=== PATIENT | female | born 1995 | race Caucasian/White ===

== ENCOUNTER 2017-07-04 21:55 | Emergency (ER) | payer OTHER ==
[~2017-07-04] VITALS: Ht 157.5 cm; Wt 63.5 kg
[~2017-07-04 21:55] MED LIST: ACET325 PO; ALBU90OI INH; AZIT250 PO; BIRTH CONTROL; FAMO20 PO; HYDACE5 PO; IBUP400 PO; IBUP600 PO; Norco 5-325 Ta1 EACH PO; PROM25 PO; Verotin-Gr Cap1 EACH PO
[2017-07-04] MEDS ORDERED: METHYLPREDNISOLONE ACETATE (22:11)
[2017-07-04 22:53] LABS: BASOPHILS ABSOLUTE AUTO 0.04 K/mm3 (0.00-0.23); BASOPHILS PERCENT AUTO 0 % (0-2); EOSINOPHILS ABSOLUTE AUTO 0.11 K/mm3 (0.00-0.68); EOSINOPHILS PERCENT AUTO 1 % (0-6); Hematocrit 43.7 % (33.0-51.0); Hemoglobin 15.1 g/dL (11.5-16.0); IMMATURE GRAN ABSOLUTE AUTO 0.02 K/mm3 (0.00-0.10); IMMATURE GRAN PERCENT AUTO 0 % (0-1); LYMPHOCYTES ABSOLUTE AUTO 3.54 K/mm3 (0.84-5.20); LYMPHOCYTES PERCENT AUTO 32 % (21-46); MONOCYTES ABSOLUTE AUTO 0.63 K/mm3 (0.16-1.47); MONOCYTES PERCENT AUTO 6 % (4-13); Mean Corpuscular HGB 31.5 pg (26.0-34.0); Mean Corpuscular HGB Conc 34.6 g/dL (31.5-36.5); Mean Corpuscular Volume 91 fL (80-100); NEUTROPHILS ABSOLUTE AUTO 6.89 K/mm3 (1.96-9.15); NEUTROPHILS PERCENT AUTO 61 % (41-73); Platelet Count 389 K/mm3 (150-400); RDW Coefficient Variation 11.8 % (11.7-14.2); RDW Standard Deviation 39.7 fL (35.1-46.3); Red Blood Cell Count 4.79 M/mm3 (3.80-5.20); White Blood Cell Count 11.23 K/mm3 (4.00-11.30)
[2017-07-04 23:11] LABS: Alanine Aminotransfer (ALT/SGP 22 U/L (12-78); Albumin, Blood 4.5 g/dL (3.4-5.0); Albumin/Globulin Ratio 1.2 (0.8-1.8); Alk Phos 87 U/L (50-136); Anion Gap 14 mmol/L (6-16); Aspartate Aminotrans (AST/SGOT 18 U/L (12-37); Bilirubin, Total 1.1 mg/dL (0.1-1.0); Blood Urea Nitrogen 12 mg/dL (8-24); Bun/Creatinine Ratio 17.8 (12.0-20.0); CO2, Blood 20 mmol/L (21-32); Calcium, Blood 9.4 mg/dL (8.5-10.1); Chloride, Blood 107 mmol/L (98-108); Creatinine, Blood 0.68 mg/dL (0.40-1.00); Globulin, Blood 3.8 g/dL (2.2-4.0); Glomerular Filtration Rate >60 (60-); Glucose, Blood 85 mg/dL (70-99); Potassium, Blood 3.1 mmol/L (3.5-5.5); Sodium, Blood 141 mmol/L (136-145); Total Protein, Blood 8.3 g/dL (6.4-8.2); Troponin I <0.015 ng/mL (0.000-0.040)
== END 2017-07-05 00:06 | disposition home or self-care (01) ==
LOC: ER 21:55
PROVIDERS: Emergency Medicine
DX: F12.929 Cannabis use, unspecified with intoxication, unspecified (principal); F41.0 Panic disorder [episodic paroxysmal anxiety]; E87.6 Hypokalemia; F17.210 Nicotine dependence, cigarettes, uncomplicated; Z88.0 Allergy status to penicillin; Z88.5 Allergy status to narcotic agent; Z79.899 Other long term (current) drug therapy
CPT/HCPCS: 36415; 71046; 80053; 81000; 81025; 84484; 85025; 93005; 93010; 99283

== ENCOUNTER 2020-07-28 21:28 | Observation (INO) | payer BC ==
[~2020-07-28] VITALS: Ht 157.5 cm; Wt 68.1 kg
[~2020-07-28 21:28] MED LIST changes: +METHYLPREDNISOLONE ACETATE
--- NOTE | 2020-07-28 23:39 | NUR ---
IV PLACED BY [facility]
[2020-07-29] MEDS ORDERED: PRENATAL TABLE1 EAC2 PO (00:09)
[2020-07-29] MEDS ORDERED: CEPH500 PO (18:11)
[2020-07-29] MEDS ORDERED: Percocet 5-3251 EACH PO (18:11)
--- NOTE | 2020-07-29 18:25 | NUR ---
DISCHARGE SUMMARY DISCHARGE INSTRUCTIONS AND SCRIPTS GIVEN. WILL DC HOME AFTER ABX INFUSION.
--- NOTE | 2020-07-29 18:35 | NUR ---
D/C HOME WITH INSTRUCTIONS
== END 2020-07-29 18:55 | disposition home or self-care (01) ==
LOC: OBS 21:28 → BC 21:30 → OBS 21:38 → BC 21:40 → OBS 21:40 → BC 23:51
PROVIDERS: ADMIT Obstetrics & Gynecology
DX: O23.03 Infections of kidney in pregnancy, third trimester (principal); N13.6 Pyonephrosis; F17.200 Nicotine dependence, unspecified, uncomplicated; Z88.6 Allergy status to analgesic agent; Z88.0 Allergy status to penicillin; Z20.822 Contact with and (suspected) exposure to COVID-19; Z3A.00 Weeks of gestation of pregnancy not specified
CPT/HCPCS: 76770; 96361; 96374; A9270; G0378; J0696; J1170; J3105; J7120

== ENCOUNTER 2020-09-17 12:15 | Inpatient (IN) | payer BC ==
[~2020-09-17] VITALS: Ht 157.5 cm; Wt 73.6 kg
[~2020-09-17 12:15] MED LIST changes: +CEPH500 PO; +PRENATAL TABLE1 EAC2 PO; +Percocet 5-3251 EACH PO
[2020-09-17 13:38] LABS: BASOPHILS ABSOLUTE AUTO 0.06 K/mm3 (0.00-0.23); BASOPHILS PERCENT AUTO 1 % (0-2); EOSINOPHILS ABSOLUTE AUTO 0.09 K/mm3 (0.00-0.68); EOSINOPHILS PERCENT AUTO 1 % (0-6); Hematocrit 38.8 % (33.0-51.0); Hemoglobin 13.3 g/dL (11.5-16.0); IMMATURE GRAN ABSOLUTE AUTO 0.07 K/mm3 (0.00-0.10); IMMATURE GRAN PERCENT AUTO 1 % (0-1); LYMPHOCYTES ABSOLUTE AUTO 2.01 K/mm3 (0.84-5.20); LYMPHOCYTES PERCENT AUTO 16 % (21-46); MONOCYTES ABSOLUTE AUTO 0.92 K/mm3 (0.16-1.47); MONOCYTES PERCENT AUTO 7 % (4-13); Mean Corpuscular HGB 31.8 pg (26.0-34.0); Mean Corpuscular HGB Conc 34.3 g/dL (31.5-36.5); Mean Corpuscular Volume 93 fL (80-100); Mean Platelet Volume 9.9 fL (9.1-12.4); NEUTROPHILS PERCENT AUTO 75 % (41-73); Platelet Count 320 K/mm3 (150-400); RDW Coefficient Variation 12.2 % (11.7-14.2); RDW Standard Deviation 41.7 fL (35.1-46.3); Red Blood Cell Count 4.18 M/mm3 (3.80-5.20); White Blood Cell Count 12.75 K/mm3 (4.00-11.30)
[2020-09-17 13:39] LABS: Influenza A, PCR NEGATIVE (NEGATIVE); Influenza B, PCR NEGATIVE (NEGATIVE); Resp Syncytial Virus, PCR NEGATIVE (NEGATIVE); SARS-Cov-2 (COVID-19) PCR, MMC NEGATIVE (NEGATIVE)
[2020-09-18 05:57] LABS: Hematocrit 37.7 % (33.0-51.0); Hemoglobin 12.6 g/dL (11.5-16.0); Mean Corpuscular HGB 31.5 pg (26.0-34.0); Mean Corpuscular HGB Conc 33.4 g/dL (31.5-36.5); Mean Corpuscular Volume 94 fL (80-100); Mean Platelet Volume 9.5 fL (9.1-12.4); Platelet Count 337 K/mm3 (150-400); RDW Coefficient Variation 12.1 % (11.7-14.2); RDW Standard Deviation 42.1 fL (35.1-46.3); White Blood Cell Count 21.34 K/mm3 (4.00-11.30)
--- NOTE | 2020-09-18 15:55 | NUR ---
RN/LC ROUNDED TO HELP W/ . PT IS AN EXPERIENCED MOM, STATES IS GOING WELL. INSTRUCTED PT ON FREQUENCY OF FEEDS AND SUPPLY/DEMAND OF BREAST MILK. INSTRUCTED PT ON CORRECT POSITIONING, LATCHING, AND NIPPLE SHAPE AFTER FEEDS. FURTHER LC OFFERED IF PT DESIRES.
--- NOTE | 2020-09-18 21:01 | NUR ---
BANDS MATCH WITH BABY.
== END 2020-09-18 21:00 | disposition home or self-care (01) | DRG 807 ==
LOC: OBS 12:15 → BC 12:15 → OBS 13:14 → BC 13:15
PROVIDERS: Family Medicine; ADMIT Family Medicine
PROC: 10E0XZZ Delivery of Products of Conception, External Approach (ICD-10-PCS; principal; 2020-09-17)
PROC: 10907ZC Drainage of Amniotic Fluid, Therapeutic from Products of Conception, Via Natural or Artificial Opening (ICD-10-PCS; 2020-09-17)
DX: O80 Encounter for full-term uncomplicated delivery (principal); Z37.0 Single live birth; Z3A.39 39 weeks gestation of pregnancy; Z20.822 Contact with and (suspected) exposure to COVID-19
CPT/HCPCS: 0241U; 36415; 59025; 85025; 85027; 86850; 86900; 86901; 99214; A9270; J1720; J1885; J2405; J2590; J3010; J7120

== ENCOUNTER → 2021-03-04 | Outpatient (CLI) | payer BC | END | disposition home or self-care (01) | LOC: LAB 16:42 → LAB SHORT 16:42 | DX: R31.9 Hematuria, unspecified (principal) | CPT/HCPCS: 87077; 87086; 87186 ==

== ENCOUNTER 2021-03-19 04:27 | Emergency (ER) | payer BC, OTHER ==
[~2021-03-19] VITALS: Ht 157.5 cm; Wt 46.3 kg
== END 2021-03-19 06:37 | disposition home or self-care (01) ==
LOC: ER 04:27
DX: T69.9XXA Effect of reduced temperature, unspecified, initial encounter (principal); F10.129 Alcohol abuse with intoxication, unspecified; F17.210 Nicotine dependence, cigarettes, uncomplicated; Z88.0 Allergy status to penicillin; Z88.5 Allergy status to narcotic agent
CPT/HCPCS: 99284

== ENCOUNTER 2021-06-25 08:18 | Emergency (ER) | payer OTHER ==
[~2021-06-25] VITALS: Ht 157.5 cm; Wt 47.6 kg
[2021-06-25 10:07] LABS: U Amphetamine Screen DETECTED; U Barbituate Screen Not Detected; U Benzodiazapine Screen Not Detected; U Buprenorphine Screen Not Detected; U Cannabinoids Screen DETECTED; U Cocaine Screen Not Detected; U Methadone Screen Not Detected; U Methamphetamine Screen DETECTED; U Opiates Screen Not Detected; U Oxycodone Screen Not Detected; U Phencyclidine Screen Not Detected; U Propoxyphene Screen Not Detected
[2021-06-26 08:10] LABS: HCV ANTIBODY <0.1 (0.0-0.9); HIV AB/P24 AG SCREEN Non Reactive (Non Reactive)
== END 2021-06-25 10:35 | disposition home or self-care (01) ==
LOC: ER 08:18
PROVIDERS: Physician Assistant
DX: S41.131A Puncture wound without foreign body of right upper arm, initial encounter (principal); W46.0XXA Contact with hypodermic needle, initial encounter; F15.10 Other stimulant abuse, uncomplicated; Z88.0 Allergy status to penicillin; Z88.5 Allergy status to narcotic agent; F17.210 Nicotine dependence, cigarettes, uncomplicated; Z79.899 Other long term (current) drug therapy
CPT/HCPCS: 84460; 86317; 86803; 87389; 99284

== ENCOUNTER 2021-06-27 21:02 | Emergency (ER) | payer OTHER ==
[~2021-06-27] VITALS: Ht 157.5 cm; Wt 49.9 kg
[2021-06-27] MEDS ORDERED: CLONAZEPAM1 MG PO (22:37)
[2021-06-27] MEDS ORDERED: GABAPENTIN600 MG PO (22:37)
[2021-06-27] MEDS ORDERED: TRAZ150T57 PO (22:38)
[2021-06-27] MEDS ORDERED: ZOLOFT25 MG PO (22:38)
[2021-06-27] MEDS ORDERED: PRAZ2 PO (22:38)
[2021-06-27] MEDS ORDERED: QUETIAPINE FUMA50 M8 PO (22:39)
[2021-06-27] MEDS ORDERED: Percocet 5-3251 EACH PO (22:42)
[2021-06-27] MEDS ORDERED: Klonopin1 MG PO (22:48)
== END 2021-06-27 22:57 | disposition home or self-care (01) ==
LOC: ER 21:02
DX: F41.1 Generalized anxiety disorder (principal); Z76.0 Encounter for issue of repeat prescription; F17.200 Nicotine dependence, unspecified, uncomplicated; Z88.0 Allergy status to penicillin; Z88.5 Allergy status to narcotic agent; Z79.899 Other long term (current) drug therapy
CPT/HCPCS: 81025

== ENCOUNTER 2021-08-29 20:32 | Inpatient (IN) | payer OTHER ==
[~2021-08-29] VITALS: Ht 160 cm; Wt 52.2 kg
[~2021-08-29 20:32] MED LIST changes: +CLONAZEPAM1 MG PO; +GABAPENTIN600 MG PO; +Klonopin1 MG PO; +PRAZ2 PO; +QUETIAPINE FUMA50 M8 PO; +TRAZ150T57 PO; +ZOLOFT25 MG PO
[2021-08-29 21:39] LABS: Alanine Aminotransfer (ALT/SGP 18 U/L (12-78); Albumin, Blood 3.9 g/dL (3.4-5.0); Albumin/Globulin Ratio 1.1 (0.8-1.8); Alk Phos 79 U/L (50-136); Anion Gap 9 mmol/L (6-16); Aspartate Aminotrans (AST/SGOT 18 U/L (12-37); Blood Urea Nitrogen 13 mg/dL (8-24); Bun/Creatinine Ratio 15.2 (12.0-20.0); CO2, Blood 28 mmol/L (21-32); Calcium, Blood 8.8 mg/dL (8.5-10.1); Chloride, Blood 102 mmol/L (98-108); Creatinine, Blood 0.86 mg/dL (0.40-1.00); Globulin, Blood 3.7 g/dL (2.2-4.0); Glomerular Filtration Rate >60 (60-); Glucose, Blood 108 mg/dL (70-99); Potassium, Blood 3.4 mmol/L (3.5-5.5); Sodium, Blood 139 mmol/L (136-145); Total Protein, Blood 7.6 g/dL (6.4-8.2)
[2021-08-29 21:48] LABS: BASOPHILS ABSOLUTE AUTO 0.06 K/mm3 (0.00-0.23); BASOPHILS PERCENT AUTO 0 % (0-2); EOSINOPHILS ABSOLUTE AUTO 0.09 K/mm3 (0.00-0.68); EOSINOPHILS PERCENT AUTO 0 % (0-6); Hematocrit 42.1 % (33.0-51.0); Hemoglobin 13.8 g/dL (11.5-16.0); IMMATURE GRAN ABSOLUTE AUTO 0.11 K/mm3 (0.00-0.10); IMMATURE GRAN PERCENT AUTO 1 % (0-1); LYMPHOCYTES ABSOLUTE AUTO 2.09 K/mm3 (0.84-5.20); LYMPHOCYTES PERCENT AUTO 10 % (21-46); MONOCYTES ABSOLUTE AUTO 1.68 K/mm3 (0.16-1.47); MONOCYTES PERCENT AUTO 8 % (4-13); Mean Corpuscular HGB 32.2 pg (26.0-34.0); Mean Corpuscular HGB Conc 32.8 g/dL (31.5-36.5); Mean Corpuscular Volume 98 fL (80-100); Mean Platelet Volume 9.7 fL (9.1-12.4); NEUTROPHILS ABSOLUTE AUTO 16.34 K/mm3 (1.96-9.15); NEUTROPHILS PERCENT AUTO 80 % (41-73); Platelet Count 288 K/mm3 (150-400); RDW Coefficient Variation 12.1 % (11.7-14.2); RDW Standard Deviation 43.9 fL (35.1-46.3); Red Blood Cell Count 4.28 M/mm3 (3.80-5.20); White Blood Cell Count 20.37 K/mm3 (4.00-11.30)
[2021-08-29] MEDS ORDERED: ZOLOFT100 M9 PO (21:59)
[2021-08-29 22:21] LABS: Source, Urine Clean Catch
[2021-08-29 22:24] LABS: Bilirubin, Urine Neg (Neg); Blood, Urine 5+ (Neg); Glucose Qualitative, Urine Neg (Neg); Ketones, Urine Neg (Neg); Leukocyte Esterase, Urine 3+ (Neg); Nitrite, Urine Pos (Neg); Protein, Urine 3+ (Neg); Urobilinogen, Urine NORM (Normal)
[2021-08-29 22:56] LABS: Appearance, Urine Cloudy (Clear); Color, Urine Yellow (P-Yellow)
[2021-08-29 22:57] LABS: Bacteria Many /hpf; Squamous Epithelial Cells Mod /hpf (Few); White Blood Cells, Urine TNTC /hpf (0-5)
--- NOTE | 2021-08-30 04:02 | NUR ---
ADMIT NOTE 25 YR OLE FEMALE ADMITED TO FLOOR FROM THE ED WITH DX SEPSIS. ALERT AND ORIENTED, USES CANE FR AMBULATION. BP LOW, IVF ORDERED - SEE MAR FOR DETAILS. NO ISOLATION ORDERS. ORIENTED TO USE OF CALL LIGHT. CALL LIGHT IN REACH.
--- NOTE | 2021-08-30 04:56 | NUR ---
YARN SORTER SUMMARY ADMITTED EARLIER WITH DX OF SEPSIS. VOICED RECENT FALL BEFORE ADMISSION - BACK PAIN. ANALGESIC ADMINISTERED. IVF OF LR INFUSING AT 125 ML/HR. NICOTINE PATCH TO RIGHT DELTOID. CALL LIGHT IN REACH.
[2021-08-30 05:14] LABS: Anion Gap 8 mmol/L (6-16); Blood Urea Nitrogen 12 mg/dL (8-24); CO2, Blood 24 mmol/L (21-32); Calcium, Blood 7.8 mg/dL (8.5-10.1); Chloride, Blood 107 mmol/L (98-108); Glomerular Filtration Rate >60 (60-); Glucose, Blood 110 mg/dL (70-99); Potassium, Blood 3.7 mmol/L (3.5-5.5); Sodium, Blood 139 mmol/L (136-145)
[2021-08-30 05:49] LABS: BASOPHILS ABSOLUTE AUTO 0.05 K/mm3 (0.00-0.23); BASOPHILS PERCENT AUTO 0 % (0-2); EOSINOPHILS ABSOLUTE AUTO 0.05 K/mm3 (0.00-0.68); EOSINOPHILS PERCENT AUTO 0 % (0-6); Hematocrit 37.5 % (33.0-51.0); Hemoglobin 12.4 g/dL (11.5-16.0); IMMATURE GRAN PERCENT AUTO 1 % (0-1); LYMPHOCYTES ABSOLUTE AUTO 1.28 K/mm3 (0.84-5.20); LYMPHOCYTES PERCENT AUTO 8 % (21-46); MONOCYTES ABSOLUTE AUTO 0.89 K/mm3 (0.16-1.47); MONOCYTES PERCENT AUTO 5 % (4-13); Mean Corpuscular HGB 32.4 pg (26.0-34.0); Mean Corpuscular HGB Conc 33.1 g/dL (31.5-36.5); Mean Corpuscular Volume 98 fL (80-100); Mean Platelet Volume 9.6 fL (9.1-12.4); NEUTROPHILS ABSOLUTE AUTO 14.16 K/mm3 (1.96-9.15); NEUTROPHILS PERCENT AUTO 85 % (41-73); Platelet Count 222 K/mm3 (150-400); RDW Coefficient Variation 12.1 % (11.7-14.2); RDW Standard Deviation 43.8 fL (35.1-46.3); Red Blood Cell Count 3.83 M/mm3 (3.80-5.20); White Blood Cell Count 16.63 K/mm3 (4.00-11.30)
--- NOTE | 2021-08-31 03:58 | NUR ---
LEATHER REPAIRER SUMMARY VSS. VOICED BACK DISCOMFORT AT HS, SCHEDULED MEDICATIONS ADMINISTERED, NO FURTHER C/O VOICED. HAS BEEN RESTING QUIETLY WITH FEW INTERRUPTIONS NOTED SINCE. CALL LIGHT IN REACH.
[2021-08-31 05:08] LABS: BASOPHILS ABSOLUTE AUTO 0.06 K/mm3 (0.00-0.23); BASOPHILS PERCENT AUTO 0 % (0-2); EOSINOPHILS ABSOLUTE AUTO 0.19 K/mm3 (0.00-0.68); EOSINOPHILS PERCENT AUTO 1 % (0-6); Hematocrit 33.2 % (33.0-51.0); Hemoglobin 10.7 g/dL (11.5-16.0); IMMATURE GRAN ABSOLUTE AUTO 0.16 K/mm3 (0.00-0.10); IMMATURE GRAN PERCENT AUTO 1 % (0-1); LYMPHOCYTES ABSOLUTE AUTO 2.04 K/mm3 (0.84-5.20); LYMPHOCYTES PERCENT AUTO 12 % (21-46); MONOCYTES ABSOLUTE AUTO 1.94 K/mm3 (0.16-1.47); MONOCYTES PERCENT AUTO 12 % (4-13); Mean Corpuscular HGB 31.8 pg (26.0-34.0); Mean Corpuscular HGB Conc 32.2 g/dL (31.5-36.5); Mean Corpuscular Volume 99 fL (80-100); Mean Platelet Volume 9.9 fL (9.1-12.4); NEUTROPHILS ABSOLUTE AUTO 12.55 K/mm3 (1.96-9.15); NEUTROPHILS PERCENT AUTO 74 % (41-73); Platelet Count 195 K/mm3 (150-400); RDW Coefficient Variation 12.1 % (11.7-14.2); RDW Standard Deviation 43.9 fL (35.1-46.3); Red Blood Cell Count 3.36 M/mm3 (3.80-5.20); White Blood Cell Count 16.94 K/mm3 (4.00-11.30)
[2021-08-31 05:53] LABS: Anion Gap 8 mmol/L (6-16); Blood Urea Nitrogen 10 mg/dL (8-24); Bun/Creatinine Ratio 13.6 (12.0-20.0); CO2, Blood 22 mmol/L (21-32); Calcium, Blood 8.2 mg/dL (8.5-10.1); Chloride, Blood 108 mmol/L (98-108); Creatinine, Blood 0.74 mg/dL (0.40-1.00); Glomerular Filtration Rate >60 (60-); Glucose, Blood 134 mg/dL (70-99); Sodium, Blood 138 mmol/L (136-145)
[2021-08-31] MEDS ORDERED: CEFP200 PO (17:21)
[2021-08-31] MEDS ORDERED: Gabapentin600 MG PO (17:21)
[2021-08-31] MEDS ORDERED: NICODERM CQ1 EA11 TOP (17:22)
[2021-08-31] MEDS ORDERED: PRAZ2 PO (17:23)
[2021-08-31] MEDS ORDERED: Desyrel150 MG PO (17:23)
[2021-08-31] MEDS ORDERED: Seroquel Xr50 MG PO (17:23)
[2021-08-31] MEDS ORDERED: VISBIOME 112.51 EACH PO (17:24)
[2021-08-31] MEDS ORDERED: TRAZ50 PO (17:25)
== END 2021-08-31 17:42 | disposition home or self-care (01) | DRG 872 ==
LOC: ER 20:32 → MEDS 08-30 02:11
PROVIDERS: Family Medicine; Student in an Organized Health Care Education/Training Program; ADMIT Family Medicine
DX: A41.51 Sepsis due to Escherichia coli [E. coli] (principal); N12 Tubulo-interstitial nephritis, not specified as acute or chronic; F50.00 Anorexia nervosa, unspecified; Z28.21 Immunization not carried out because of patient refusal; F41.9 Anxiety disorder, unspecified; E87.6 Hypokalemia; F17.210 Nicotine dependence, cigarettes, uncomplicated; Z71.6 Tobacco abuse counseling; F32.A Depression, unspecified; F43.10 Post-traumatic stress disorder, unspecified; F17.290 Nicotine dependence, other tobacco product, uncomplicated; Z71.51 Drug abuse counseling and surveillance of drug abuser; Z91.410 Personal history of adult physical and sexual abuse; Z68.20 Body mass index [BMI] 20.0-20.9, adult; Z88.0 Allergy status to penicillin; Z88.5 Allergy status to narcotic agent; Z79.899 Other long term (current) drug therapy; W01.0XXA Fall on same level from slipping, tripping and stumbling without subsequent striking against object, initial encounter; Y93.02 Activity, running
CPT/HCPCS: 36415; 71046; 74176; 80048; 80053; 81001; 81025; 83605; 85025; 87040; 87077; 87086; 87186; 96374; 96375; 99285-25; A9270; J0696; J1650; J1885; J7030; J7120

== ENCOUNTER 2021-09-26 22:49 | Emergency (ER) | payer OTHER ==
[~2021-09-26] VITALS: Ht 157.5 cm; Wt 49.9 kg
[~2021-09-26 22:49] MED LIST changes: +CEFP200 PO; +Desyrel150 MG PO; +Gabapentin600 MG PO; +NICODERM CQ1 EA11 TOP; +Seroquel Xr50 MG PO; +TRAZ50 PO; +VISBIOME 112.51 EACH PO; +ZOLOFT100 M9 PO
== END 2021-09-27 03:30 | disposition home or self-care (01) ==
LOC: ER 22:49
DX: S86.912A Strain of unspecified muscle(s) and tendon(s) at lower leg level, left leg, initial encounter (principal); X58.XXXA Exposure to other specified factors, initial encounter; Z88.0 Allergy status to penicillin; Z88.5 Allergy status to narcotic agent; Z79.899 Other long term (current) drug therapy; F17.200 Nicotine dependence, unspecified, uncomplicated
CPT/HCPCS: 73562-LT; 93971; 99284-25; A9270

== ENCOUNTER 2022-02-17 16:37 | Emergency (ER) | payer OTHER ==
[~2022-02-17] VITALS: Ht 157.5 cm; Wt 49.9 kg
[2022-02-17] MEDS ORDERED: CLIN300 PO (19:09)
== END 2022-02-17 19:36 | disposition home or self-care (01) ==
LOC: ER 16:37
DX: S40.022A Contusion of left upper arm, initial encounter (principal); S60.812A Abrasion of left wrist, initial encounter; S40.811A Abrasion of right upper arm, initial encounter; X58.XXXA Exposure to other specified factors, initial encounter; F17.210 Nicotine dependence, cigarettes, uncomplicated; Z23 Encounter for immunization
CPT/HCPCS: 73090; 90714

== ENCOUNTER 2022-04-20 23:24 | Emergency (ER) | payer OTHER ==
[~2022-04-20] VITALS: Ht 157.5 cm; Wt 52.2 kg
[~2022-04-20 23:24] MED LIST changes: +CLIN300 PO
[2022-04-21] MEDS ORDERED: NAPROXEN250 M1 PO (01:48)
[2022-04-21] MEDS ORDERED: Neurontin 300300 MG PO (01:48)
== END 2022-04-21 02:10 | disposition home or self-care (01) ==
LOC: ER 23:24
DX: M54.41 Lumbago with sciatica, right side (principal); F17.210 Nicotine dependence, cigarettes, uncomplicated; Z88.0 Allergy status to penicillin; Z88.5 Allergy status to narcotic agent
CPT/HCPCS: A9270; J1885

== ENCOUNTER 2022-10-15 17:54 | Emergency (ER) | payer OTHER ==
[~2022-10-15] VITALS: Ht 157.5 cm; Wt 52.2 kg
[~2022-10-15 17:54] MED LIST changes: +NAPROXEN250 M1 PO; +Neurontin 300300 MG PO
[2022-10-15 18:21] VITALS: BP 131/83
== END 2022-10-15 19:36 | disposition home or self-care (01) ==
LOC: ER 17:54
DX: S61.431A Puncture wound without foreign body of right hand, initial encounter (principal); W26.0XXA Contact with knife, initial encounter; Z88.0 Allergy status to penicillin; Z88.5 Allergy status to narcotic agent; F17.210 Nicotine dependence, cigarettes, uncomplicated
CPT/HCPCS: 73120; 90714

== ENCOUNTER 2022-10-18 20:44 | Emergency (ER) | payer OTHER ==
[~2022-10-18] VITALS: Ht 157.5 cm; Wt 54.4 kg
[2022-10-18 21:05] VITALS: BP 120/83
== END 2022-10-18 23:23 | disposition home or self-care (01) ==
LOC: ER 20:44
DX: S09.90XA Unspecified injury of head, initial encounter (principal); M79.652 Pain in left thigh; W22.8XXA Striking against or struck by other objects, initial encounter; F17.210 Nicotine dependence, cigarettes, uncomplicated; Z88.0 Allergy status to penicillin; Z88.5 Allergy status to narcotic agent
CPT/HCPCS: 70450; 99284-25; A9270

== ENCOUNTER 2023-02-24 17:03 | Emergency (ER) | payer OTHER ==
[~2023-02-24] VITALS: Ht 157.5 cm; Wt 52.2 kg
[2023-02-24 17:14] VITALS: BP 114/82
== END 2023-02-24 17:44 | disposition home or self-care (01) ==
LOC: ER 17:03
DX: T63.441A Toxic effect of venom of bees, accidental (unintentional), initial encounter (principal); F17.210 Nicotine dependence, cigarettes, uncomplicated; Z88.5 Allergy status to narcotic agent; Z88.0 Allergy status to penicillin
CPT/HCPCS: 96372; 99282-25; A9270; J1885

== ENCOUNTER 2023-03-26 04:04 | Emergency (ER) | payer OTHER ==
[~2023-03-26] VITALS: Ht 157.5 cm; Wt 51.3 kg
[2023-03-26] MEDS ORDERED: RALT400 PO (04:54)
[2023-03-26] MEDS ORDERED: METR500 PO (04:54)
[2023-03-26] MEDS ORDERED: TRUVADA 200 MG1 EAC2 PO (04:54)
[2023-03-26] MEDS ORDERED: DOXY100 PO (04:54)
[2023-03-26 10:40] VITALS: BP 122/76
== END 2023-03-26 10:45 | disposition home or self-care (01) ==
LOC: ER 04:04
DX: T74.21XA Adult sexual abuse, confirmed, initial encounter (principal); S50.812A Abrasion of left forearm, initial encounter; X58.XXXA Exposure to other specified factors, initial encounter; Z88.0 Allergy status to penicillin; Z88.5 Allergy status to narcotic agent
CPT/HCPCS: 81000; 81025; 96372; 99284-25; A9270; J0696

== ENCOUNTER 2023-04-26 00:26 | Emergency (ER) | payer OTHER ==
[~2023-04-26] VITALS: Ht 157.5 cm; Wt 54.4 kg
[~2023-04-26 00:26] MED LIST changes: +DOXY100 PO; +METR500 PO; +RALT400 PO; +TRUVADA 200 MG1 EAC2 PO
[2023-04-26 02:42] VITALS: BP 134/70
== END 2023-04-26 04:42 | disposition home or self-care (01) ==
LOC: ER 00:26
DX: T50.901A Poisoning by unspecified drugs, medicaments and biological substances, accidental (unintentional), initial encounter (principal); Z88.0 Allergy status to penicillin; Z88.5 Allergy status to narcotic agent; Z79.899 Other long term (current) drug therapy
CPT/HCPCS: 82947; 93005; 93010; 99283-25

== ENCOUNTER 2023-06-29 20:38 | Emergency (ER) | payer OTHER ==
[~2023-06-29] VITALS: Ht 157.5 cm; Wt 54.4 kg
[2023-06-29 21:33] LABS: BASOPHILS PERCENT AUTO 1 % (0-2); EOSINOPHILS ABSOLUTE AUTO 0.15 K/mm3 (0.00-0.68); EOSINOPHILS PERCENT AUTO 2 % (0-6); Hematocrit 41.6 % (33.0-51.0); Hemoglobin 13.8 g/dL (11.5-16.0); IMMATURE GRAN ABSOLUTE AUTO 0.01 K/mm3 (0.00-0.10); IMMATURE GRAN PERCENT AUTO 0 % (0-1); LYMPHOCYTES ABSOLUTE AUTO 3.37 K/mm3 (0.84-5.20); LYMPHOCYTES PERCENT AUTO 45 % (21-46); MONOCYTES ABSOLUTE AUTO 0.57 K/mm3 (0.16-1.47); MONOCYTES PERCENT AUTO 8 % (4-13); Mean Corpuscular HGB 31.2 pg (26.0-34.0); Mean Corpuscular HGB Conc 33.2 g/dL (31.5-36.5); Mean Corpuscular Volume 94 fL (80-100); NEUTROPHILS ABSOLUTE AUTO 3.26 K/mm3 (1.96-9.15); NEUTROPHILS PERCENT AUTO 44 % (41-73); Platelet Count 376 K/mm3 (150-400); RDW Coefficient Variation 12.4 % (11.7-14.2); RDW Standard Deviation 43.4 fL (35.1-46.3); Red Blood Cell Count 4.43 M/mm3 (3.80-5.20); White Blood Cell Count 7.46 K/mm3 (4.00-11.30)
[2023-06-29 21:48] LABS: Albumin, Blood 3.7 g/dL (3.4-5.0); Albumin/Globulin Ratio 1.1 (0.8-1.8); Bilirubin, Total 0.4 mg/dL (0.1-1.0); Creatinine, Blood 0.68 mg/dL (0.40-1.00); Globulin, Blood 3.5 g/dL (2.2-4.0); Potassium, Blood 3.9 mmol/L (3.5-5.5); Total Protein, Blood 7.2 g/dL (6.4-8.2)
[2023-06-29 23:18] LABS: Source, Urine Clean Catch
[2023-06-29 23:24] LABS: Bilirubin, Urine Neg (Neg); Blood, Urine 5+ (Neg); Glucose Qualitative, Urine Neg (Neg); Ketones, Urine Neg (Neg); Leukocyte Esterase, Urine 1+ (Neg); Nitrite, Urine Neg (Neg); Protein, Urine 2+ (Neg); Urobilinogen, Urine NORM (Normal)
[2023-06-29 23:34] LABS: Appearance, Urine Hazy (Clear); Color, Urine Yellow (P-Yellow)
[2023-06-29 23:37] LABS: Bacteria Mod /hpf; Red Blood Cells, Urine TNTC /hpf (0-2); Squamous Epithelial Cells Not Seen /hpf (Few); White Blood Cells, Urine 0-2 /hpf (0-5)
[2023-06-30 01:00] VITALS: BP 102/66
== END 2023-06-30 01:14 | disposition home or self-care (01) ==
LOC: ER 20:38
PROVIDERS: Emergency Medicine
DX: N93.9 Abnormal uterine and vaginal bleeding, unspecified (principal); F17.210 Nicotine dependence, cigarettes, uncomplicated; Z88.0 Allergy status to penicillin; Z88.5 Allergy status to narcotic agent
CPT/HCPCS: 80053; 81001; 84703; 85025; 99283

== ENCOUNTER 2023-10-21 18:44 | Emergency (ER) | payer OTHER ==
[~2023-10-21] VITALS: Ht 157.5 cm; Wt 72.6 kg
[2023-10-21 19:50] LABS: Source, Urine Clean Catch
[2023-10-21 19:55] LABS: Appearance, Urine Hazy (Clear); Bilirubin, Urine Neg (Neg); Blood, Urine 1+ (Neg); Color, Urine Yellow (P-Yellow); Glucose Qualitative, Urine Neg (Neg); Ketones, Urine Neg (Neg); Leukocyte Esterase, Urine 3+ (Neg); Nitrite, Urine Neg (Neg); Protein, Urine 1+ (Neg); Specific Gravity, Urine 1.025 (1.003-1.022); Urobilinogen, Urine 1+ (Normal)
[2023-10-21 20:03] LABS: Amorphous Light (0-Heavy); Bacteria Many /hpf; Mucus Light (0-Heavy); Yeast/Fungi Urine Rare /hpf
[2023-10-21 20:04] LABS: Calcium Oxalate Crystals Many /hpf; Red Blood Cells, Urine 0-2 /hpf (0-2); Squamous Epithelial Cells Mod /hpf (Few); White Blood Cells, Urine 50-100 /hpf (0-5)
[2023-10-21 20:33] LABS: BASOPHILS ABSOLUTE AUTO 0.06 K/mm3 (0.00-0.23); BASOPHILS PERCENT AUTO 1 % (0-2); EOSINOPHILS ABSOLUTE AUTO 0.15 K/mm3 (0.00-0.68); EOSINOPHILS PERCENT AUTO 1 % (0-6); Hematocrit 34.8 % (33.0-51.0); Hemoglobin 11.8 g/dL (11.5-16.0); IMMATURE GRAN ABSOLUTE AUTO 0.03 K/mm3 (0.00-0.10); IMMATURE GRAN PERCENT AUTO 0 % (0-1); LYMPHOCYTES ABSOLUTE AUTO 3.21 K/mm3 (0.84-5.20); LYMPHOCYTES PERCENT AUTO 28 % (21-46); MONOCYTES ABSOLUTE AUTO 0.77 K/mm3 (0.16-1.47); MONOCYTES PERCENT AUTO 7 % (4-13); Mean Corpuscular HGB 32.5 pg (26.0-34.0); Mean Corpuscular HGB Conc 33.9 g/dL (31.5-36.5); Mean Corpuscular Volume 96 fL (80-100); Mean Platelet Volume 9.1 fL (9.1-12.4); NEUTROPHILS ABSOLUTE AUTO 7.39 K/mm3 (1.96-9.15); NEUTROPHILS PERCENT AUTO 64 % (41-73); Platelet Count 313 K/mm3 (150-400); RDW Coefficient Variation 12.8 % (11.7-14.2); RDW Standard Deviation 44.9 fL (35.1-46.3); Red Blood Cell Count 3.63 M/mm3 (3.80-5.20); White Blood Cell Count 11.61 K/mm3 (4.00-11.30)
[2023-10-21 20:46] LABS: Albumin, Blood 2.9 g/dL (3.4-5.0); Albumin/Globulin Ratio 0.9 (0.8-1.8); Bilirubin, Total 0.3 mg/dL (0.1-1.0); Bun/Creatinine Ratio 14.3 (12.0-20.0); Calcium, Blood 8.9 mg/dL (8.5-10.1); Creatinine, Blood 0.49 mg/dL (0.40-1.00); Globulin, Blood 3.3 g/dL (2.2-4.0); Potassium, Blood 3.5 mmol/L (3.5-5.5); Total Protein, Blood 6.2 g/dL (6.4-8.2)
[2023-10-21] MEDS ORDERED: ONDA4ODT MM (22:09)
[2023-10-21] MEDS ORDERED: CEPH500 PO (22:09)
[2023-10-21] MEDS ORDERED: Cephalexin Monohydrate 500 MG Cap PO ONE (22:10)
[2023-10-21 22:35] VITALS: BP 99/67
== END 2023-10-21 22:36 | disposition home or self-care (01) ==
LOC: ER 18:44
PROVIDERS: Nurse Practitioner; Physician Assistant
DX: O23.42 Unspecified infection of urinary tract in pregnancy, second trimester (principal); N39.0 Urinary tract infection, site not specified; Z3A.17 17 weeks gestation of pregnancy; Z88.0 Allergy status to penicillin; Z88.5 Allergy status to narcotic agent; O99.332 Smoking (tobacco) complicating pregnancy, second trimester; F17.210 Nicotine dependence, cigarettes, uncomplicated
CPT/HCPCS: 76815; 76817; 80053; 81001; 84702; 85025; 87086; 99284-25; A9270

== ENCOUNTER → 2023-12-02 | Outpatient (CLI) | payer OTHER ==
[~2023-12-02] MED LIST changes: +ONDA4ODT MM
[2023-12-02 19:52] LABS: Bacterial Vaginosis PCR Negative (NEGATIVE); Candida Group, PCR NOT DETECTED (NOT DETECT)
[2023-12-02 19:53] LABS: Candida glabrata-krusei, PCR DETECTED (NOT DETECT)
== END | disposition home or self-care (01) ==
LOC: LAB SHORT 15:30 → LAB 15:30
PROVIDERS: Obstetrics & Gynecology
DX: N76.0 Acute vaginitis (principal)
CPT/HCPCS: 87481; 87661; 87801

== ENCOUNTER → 2023-12-14 | Outpatient (CLI) | payer OTHER ==
[2023-12-17 21:54] LABS: AMPHETAMINE,URN,QUANT 324 ng/mL; MDA,URN,QUANT <200 ng/mL; MDEA,URN,QUANT <200 ng/mL; MDMA,URN,QUANT <200 ng/mL; METHAMPHETAMINE,URN,QUANT 707 ng/mL; PHENTERMINE,URN,QUANT <200 ng/mL
== END ==
LOC: LAB 12:21 → LAB SHORT 12:21
PROVIDERS: Obstetrics & Gynecology
DX: F19.11 Other psychoactive substance abuse, in remission (principal)
CPT/HCPCS: G0480

== ENCOUNTER 2024-01-16 16:35 | Emergency (ER) | payer OTHER ==
[~2024-01-16] VITALS: Ht 157.5 cm; Wt 77.1 kg
[2024-01-16 16:51] VITALS: BP 134/84
== END 2024-01-16 18:34 | disposition home or self-care (01) ==
LOC: ER 16:35
DX: O99.891 Other specified diseases and conditions complicating pregnancy (principal); M25.472 Effusion, left ankle; O99.333 Smoking (tobacco) complicating pregnancy, third trimester; F17.210 Nicotine dependence, cigarettes, uncomplicated; O30.003 Twin pregnancy, unspecified number of placenta and unspecified number of amniotic sacs, third trimester; Z3A.32 32 weeks gestation of pregnancy; Z88.0 Allergy status to penicillin; Z88.5 Allergy status to narcotic agent
CPT/HCPCS: 93971; 99283-25

== ENCOUNTER → 2024-01-27 | Outpatient (CLI) | payer OTHER ==
[2024-01-30 02:23] LABS: AMPHETAMINE,URN,QUANT 210 ng/mL; MDA,URN,QUANT <200 ng/mL; MDEA,URN,QUANT <200 ng/mL; MDMA,URN,QUANT <200 ng/mL; METHAMPHETAMINE,URN,QUANT 820 ng/mL; PHENTERMINE,URN,QUANT <200 ng/mL
== END ==
LOC: LAB 13:02 → LAB SHORT 13:02
PROVIDERS: Obstetrics & Gynecology
DX: F19.91 Other psychoactive substance use, unspecified, in remission (principal)
CPT/HCPCS: G0480

== ENCOUNTER → 2024-02-28 | Outpatient (CLI) | payer OTHER ==
[~2024-02-28] MED LIST changes: +ACET500 PO; +ALDACTONE25 MG PO; +LOSA25 PO; +METOPROLOL SUCC25 MG PO; +MIRALAX17 GM PO; +OXAYDO5 M1 PO
[2024-03-03 15:23] LABS: AMPHETAMINE,URN,QUANT 596 ng/mL; MDA,URN,QUANT <200 ng/mL; MDEA,URN,QUANT <200 ng/mL; MDMA,URN,QUANT <200 ng/mL; METHAMPHETAMINE,URN,QUANT 3050 ng/mL; PHENTERMINE,URN,QUANT <200 ng/mL
== END | disposition home or self-care (01) ==
LOC: LAB SHORT 16:08 → LAB 16:08
PROVIDERS: Obstetrics & Gynecology
DX: O30.043 Twin pregnancy, dichorionic/diamniotic, third trimester (principal); O99.323 Drug use complicating pregnancy, third trimester; F19.91 Other psychoactive substance use, unspecified, in remission
CPT/HCPCS: 87081; 87150; G0480

== ENCOUNTER 2024-03-07 06:13 | Inpatient (IN) | payer OTHER ==
[~2024-03-07] VITALS: Ht 157.5 cm; Wt 82.0 kg
[2024-03-07] VITALS (17 sets, daily range): BP systolic 68–106; BP diastolic 54–87
[2024-03-07 05:33] LABS: BASOPHILS ABSOLUTE AUTO 0.09 K/mm3 (0.00-0.23); BASOPHILS PERCENT AUTO 1 % (0-2); EOSINOPHILS ABSOLUTE AUTO 0.15 K/mm3 (0.00-0.68); EOSINOPHILS PERCENT AUTO 1 % (0-6); Hematocrit 30.4 % (33.0-51.0); Hemoglobin 9.8 g/dL (11.5-16.0); IMMATURE GRAN ABSOLUTE AUTO 0.11 K/mm3 (0.00-0.10); IMMATURE GRAN PERCENT AUTO 1 % (0-1); LYMPHOCYTES ABSOLUTE AUTO 2.96 K/mm3 (0.84-5.20); LYMPHOCYTES PERCENT AUTO 28 % (21-46); MONOCYTES ABSOLUTE AUTO 0.67 K/mm3 (0.16-1.47); MONOCYTES PERCENT AUTO 6 % (4-13); Mean Corpuscular HGB 26.1 pg (26.0-34.0); Mean Corpuscular HGB Conc 32.2 g/dL (31.5-36.5); Mean Corpuscular Volume 81 fL (80-100); Mean Platelet Volume 9.9 fL (9.1-12.4); NEUTROPHILS PERCENT AUTO 63 % (41-73); Platelet Count 412 K/mm3 (150-400); RDW Coefficient Variation 15.1 % (11.7-14.2); RDW Standard Deviation 44.1 fL (35.1-46.3); Red Blood Cell Count 3.76 M/mm3 (3.80-5.20); White Blood Cell Count 10.78 K/mm3 (4.00-11.30)
[2024-03-07 05:38] LABS: Bicarbonate Venous 18.3 mmol/L (24.0-30.0)
[2024-03-07 05:39] LABS: pH Blood Venous 7.28 (7.34-7.37)
[2024-03-07 05:49] LABS: International Normalized Ratio 0.92; Prothrombin Time Results 9.9 Sec (9.7-11.5)
[2024-03-07 06:01] LABS: Albumin, Blood 1.9 g/dL (3.4-5.0); Albumin/Globulin Ratio 0.5 (0.8-1.8); Bilirubin, Total 0.3 mg/dL (0.1-1.0); Bun/Creatinine Ratio 8.9 (12.0-20.0); Calcium, Blood 8.4 mg/dL (8.5-10.1); Creatinine, Blood 0.79 mg/dL (0.40-1.00); Globulin, Blood 3.8 g/dL (2.2-4.0); Potassium, Blood 3.7 mmol/L (3.5-5.5); Total Protein, Blood 5.7 g/dL (6.4-8.2)
[~2024-03-07 06:13] MED LIST changes: -ACET500 PO; -ALDACTONE25 MG PO; +Furosemide 10 MG/ML 4ML Vial ONE; -LOSA25 PO; -METOPROLOL SUCC25 MG PO; -MIRALAX17 GM PO; +Nitroglycerin/D5W 250 ML IV ONE; +Nitroglycerin/D5W 250 ML IV PRN; -OXAYDO5 M1 PO; +Ondansetron HCl 2 MG / ML 2ML Vial IV ONE; +Ondansetron HCl 2 MG / ML 2ML Vial ONE
[2024-03-07] MEDS ORDERED: Misoprostol 200 MCG Tab BC PRN ×2 (06:20→06:25)
[2024-03-07] MEDS ORDERED: OXYTOCIN/RINGER'S LACTATE 500 ML IV PRN ×2 (06:20→06:25)
[2024-03-07] MEDS ORDERED: Ondansetron HCl 2 MG / ML 2ML Vial IV PRN ×2 (06:20→06:25)
[2024-03-07] MEDS ORDERED: Oxytocin 10 Unit / ML Vial IM PRN ×2 (06:20→06:25)
[2024-03-07] MEDS ORDERED: Tranexamic Acid 100 ML IV SCH (06:20)
[2024-03-07] MEDS ORDERED: Misoprostol 200 MCG Tab PR PRN ×2 (06:20→06:25)
[2024-03-07] MEDS ORDERED: Carboprost Tromethamine 250 MCG/ML 1ML Amp IM PRN ×2 (06:20→06:25)
[2024-03-07] MEDS ORDERED: Lactated Ringer's 1,000 ML IV PRN ×2 (06:20→06:25)
[2024-03-07] MEDS ORDERED: Acetaminophen 500 MG Tab PO PRN ×2 (06:20→06:25)
[2024-03-07] MEDS ORDERED: Calcium Carbonate 500 MG Tab Chew PO PRN ×2 (06:20→06:25)
[2024-03-07] MEDS ORDERED: Methylergonovine Maleate 0.2MG / ML 1ML Amp IM PRN ×2 (06:20→06:25)
[2024-03-07] MEDS ORDERED: propofoL 60 ML IV ONE (06:22)
[2024-03-07] MEDS ORDERED: Tranexamic Acid 1,000 MG in NS 100 ML IV SCH (06:25)
[2024-03-07] MEDS ORDERED: Oxytocin 10 Unit / ML Vial ONE (06:32)
[2024-03-07] MEDS ORDERED: CeFAZolin Sodium 1,000 MG in NS 50 ML IV ONE (06:35)
[2024-03-07] MEDS ORDERED: FentaNYL Citrate 50 MCG/ML 2 ML Injection ONE ×2 (06:40→11:04)
[2024-03-07] MEDS ORDERED: Midazolam HCl 1MG / ML 2ML Vial ONE ×2 (06:41→14:27)
[2024-03-07] MEDS ORDERED: Dexamethasone Sod Phos 10 MG/ML 1ML VIAL ONE (06:43)
[2024-03-07] MEDS ORDERED: propofoL 20 ML IV ONE (06:46)
--- NOTE | 2024-03-07 07:11 | NUR ---
03/07/24 0711 Georgette Crowell PATIENT INTUBATED PRIOR TO ARRIVING IN OR.
[2024-03-07] MEDS ORDERED: Etomidate 2MG / ML 10ML Vial XX ONE (07:29)
[2024-03-07] MEDS ORDERED: Magnesium Sulfate 500 MG / ML 2ML Vial XX ONE (07:29)
[2024-03-07] MEDS ORDERED: Midazolam HCl 1MG / ML 2ML Vial IV ONE (07:29)
[2024-03-07] MEDS ORDERED: propofoL 100 ML IV ONE (07:33)
[2024-03-07 07:47] LABS: U Amphetamine Screen Not Detected; U Barbituate Screen Not Detected; U Benzodiazapine Screen Not Detected; U Buprenorphine Screen Not Detected; U Cannabinoids Screen Not Detected; U Cocaine Screen Not Detected; U Methadone Screen Not Detected; U Methamphetamine Screen Not Detected; U Opiates Screen Not Detected; U Oxycodone Screen Not Detected; U Phencyclidine Screen Not Detected
[2024-03-07] MEDS ORDERED: Magnesium Sulfate 500 ML IV SCH (07:50)
[2024-03-07] MEDS ORDERED: Oxytocin 10 Unit / ML Vial IM ONE (07:55)
[2024-03-07 08:05] LABS: Hematocrit 29.4 % (33.0-51.0); Hemoglobin 9.2 g/dL (11.5-16.0); Mean Corpuscular HGB 26.7 pg (26.0-34.0); Mean Corpuscular HGB Conc 31.3 g/dL (31.5-36.5); Mean Corpuscular Volume 85 fL (80-100); NRBC ABSOLUTE 0.13 K/mm3 (0.00-0.02); NRBC Auto 0.4 /100 WBC (0.0-0.2); Platelet Count 445 K/mm3 (150-400); RDW Coefficient Variation 15.1 % (11.7-14.2); RDW Standard Deviation 46.7 fL (35.1-46.3); Red Blood Cell Count 3.45 M/mm3 (3.80-5.20); White Blood Cell Count 32.12 K/mm3 (4.00-11.30)
[2024-03-07 08:19] LABS: Source, Urine Foley catheter
[2024-03-07] MEDS ORDERED: propofoL 100 ML IV SCH (08:30)
[2024-03-07 08:34] LABS: Magnesium, Blood 2.4 mg/dL (1.6-2.4)
[2024-03-07] MEDS ORDERED: NS 500 ML IV ONE (08:35)
[2024-03-07] MEDS ORDERED: NS 500 ML IV SCH (08:35)
[2024-03-07 08:37] LABS: Albumin, Blood 1.4 g/dL (3.4-5.0); Albumin/Globulin Ratio 0.4 (0.8-1.8); Bilirubin, Total 0.4 mg/dL (0.1-1.0); Calcium, Blood 7.5 mg/dL (8.5-10.1); Creatinine, Blood 0.9 mg/dL (0.40-1.00); Globulin, Blood 3.3 g/dL (2.2-4.0); Phosphorus, Blood 7.7 mg/dL (2.5-4.9); Potassium, Blood 3.8 mmol/L (3.5-5.5); Thyroid Stimulating Hormone 8.42 uIU/mL (0.360-4.800); Total Protein, Blood 4.7 g/dL (6.4-8.2)
[2024-03-07] MEDS ORDERED: Piperacillin/Tazobactam Sod 3.375 GM in NS 100 ML IV SCH (08:45)
[2024-03-07 08:50] LABS: Appearance, Urine Clear (Clear); Bilirubin, Urine Neg (Neg); Blood, Urine 3+ (Neg); Color, Urine Yellow (P-Yellow); Glucose Qualitative, Urine Neg (Neg); Ketones, Urine Neg (Neg); Leukocyte Esterase, Urine Neg (Neg); Nitrite, Urine Neg (Neg); Protein, Urine 4+ (Neg); Urobilinogen, Urine NORM (Normal)
[2024-03-07] MEDS ORDERED: Vancomycin HCL 1,750 MG in NS 500 ML IV ONE (08:50)
[2024-03-07 09:04] LABS: Bacteria Not Seen /hpf; Squamous Epithelial Cells Rare /hpf (Few); White Blood Cells, Urine Not Seen /hpf (0-5)
[2024-03-07 09:19] LABS: BAND PERCENT MAN 4 % (0-8); BASOPHILS PERCENT MAN 0 % (0-2); EOSINOPHILS PERCENT MAN 0 % (0-6); LYMPHOCYTES ABSOLUTE MAN 3.85 K/mm3 (0.84-5.20); LYMPHOCYTES PERCENT MAN 12 % (21-46); METAMYELOCYTE ABSOLUTE MAN 0.64 K/mm3 (0.00-0.00); METAMYELOCYTE PERCENT MAN 2 % (0-0); MONOCYTES PERCENT MAN 0 % (4-13); MYELOCYTE ABSOLUTE MAN 0.96 K/mm3 (0.00-0.00); MYELOCYTE PERCENT MAN 3 % (0-0); NEUTROPHILS ABSOLUTE MAN 26.65 K/mm3 (1.96-9.15); SEG NEUTROPHILS PERCENT MAN 79 % (41-73); TOTAL CELLS COUNTED 100
[2024-03-07 09:40] LABS: PCO2 Arterial 51 mmHg (35-45); PO2 Arterial 192 mmHg (80-100); pH Blood Arterial 7.12 (7.35-7.45)
[2024-03-07] MEDS ORDERED: Lactated Ringer's 1,000 ML IV ONE (09:45)
[2024-03-07] MEDS ORDERED: Heparin Sodium 1000 Units/ML 10ML MDV ONE ×4 (10:01→10:52)
[2024-03-07] MEDS ORDERED: NS 1,000 ML IV ONE ×3 (10:01→10:52)
[2024-03-07] MEDS ORDERED: FentaNYL Citrate 50 MCG/ML 2 ML Injection IV PRN ×2 (10:05→14:50)
[2024-03-07] MEDS ORDERED: NS 250 ML IV ONE (10:16)
--- NOTE | 2024-03-07 10:21 | NUR ---
ASSISTED WITH TRANSFER OF PT TO ICU WITH YU CURILE AND JAKE RT. BRIEF REPORT GIVEN TO TWIN CHAUHAN RN. PT TO ICU AT 0730.
[2024-03-07] MEDS ORDERED: Verapamil HCL 2.5 MG/ML 2ML Injection ONE (10:52)
[2024-03-07] MEDS ORDERED: Nitroglycerin 2 MG/20 ML BTL ONE (10:52)
--- NOTE | 2024-03-07 11:19 | NUR ---
PT ADMIT.... PT ARRIVED TO THE UNIT FROM THE OR AT 0730, SHE IS INTUBATED AND SEDATED WITH PROPOFOL RUNNING AT 75MCG/KG/MIN, ET TUBE IS 7.5 AND 22 AT THE TEETH. VENT SETTINGS WERE AC/PC: RATE 18, PEEP 12, FIO2 100% WITH O2 SATS 90-95%. L/S FINE CRACKLES HEARD T/O. PT WAS IN SINUS TACH IN THE 140'S BP SOFT WITH MAPS>65 AT THIS TIME. OB AND FAMILY RN AT THE BEDSIDE AT THE TIME OF TRANSFER, VERBAL INSTRUCTIONS/DEMONSTRATION GIVEN ON FUNDAL MASSAGE. THE PT HAD COPIOUS AMOUNTS OF VAGINAL BLEEDING WITH LARGE CLOTS THE SIZE OF GOLF BALLS TO DIME SIZED. SHE SATURATED THROUGH APROX 4 LARGE CRISTOBAL PADS. STAT ECHO WAS DONE AT [facility] BEDSIDE AND CARDIOLOGY CONSULT WAS PLACED. THE BEARING MAKER CAME TO ASSESS THE PT AT THE BEDSIDE AND REQUESTED AN ART LINE TO BE PLACED. A RIGHT IJ CENTRAL LINE AND LEFT RADIAL ART LINE WERE PLACED BY ICU PROVIDER WITHOUT ISSUE. XRAY PLACEMENT VERIFIED. ONCE THE ART LINE WAS PLACED PULSUS PARADOXUS WAS NOTED ON THE MONITOR, THE PT'S BP STARTED TO TREND DOWN WITH MAPS IN THE MID 50'S TO LOW 60'S, PROVIDERS NOTIFIED. LEVOPHED WAS STARTED AT 2MCG/MIN AND 1 UNIT OF PRBCs WAS STARTED. PT WAS TAKEN TO THE GEOPHYSICS PROFESSOR FOR POSSIBLE CARDIAC TAMPONADE. WILL CONTINUE TO MONITOR.
--- NOTE | 2024-03-07 11:19 | NUR ---
"Spiritual Care | Family support. Pt. is in the medical lab assistant when this centrifugal drier operator was called. Pts. mom, aka as the Pts. decision maker is in the waiting room. Mom is appropriately emotional and scared. Facilitate a life review. While sheldon is not a part of their family system. Mom welcomed prayer. Other family members arrived, some providing comfort and some displaying evidence of higher anxiety. Mom was called to the to sign papers for the Pts. twins to be transferred to [place]. Family verbalized gratitude fo rthe spiritual care visit. Checked in with Pts. ICU nurse. Will follow up with Pt. and family."
[2024-03-07] MEDS ORDERED: FentaNYL Citrate 50 MCG/ML 2 ML Injection IV ONE (12:10)
[2024-03-07] MEDS ORDERED: Azithromycin 500 MG in NS 250 ML IV ONE (12:55)
[2024-03-07 12:58] LABS: BASOPHILS ABSOLUTE AUTO 0.08 K/mm3 (0.00-0.23); BASOPHILS PERCENT AUTO 0 % (0-2); EOSINOPHILS PERCENT AUTO 0 % (0-6); Hematocrit 26.3 % (33.0-51.0); Hemoglobin 8.6 g/dL (11.5-16.0); IMMATURE GRAN ABSOLUTE AUTO 0.51 K/mm3 (0.00-0.10); IMMATURE GRAN PERCENT AUTO 2 % (0-1); LYMPHOCYTES ABSOLUTE AUTO 0.63 K/mm3 (0.84-5.20); LYMPHOCYTES PERCENT AUTO 2 % (21-46); MONOCYTES ABSOLUTE AUTO 1.49 K/mm3 (0.16-1.47); MONOCYTES PERCENT AUTO 5 % (4-13); Mean Corpuscular HGB 27.1 pg (26.0-34.0); Mean Corpuscular HGB Conc 32.7 g/dL (31.5-36.5); Mean Corpuscular Volume 83 fL (80-100); Mean Platelet Volume 9.9 fL (9.1-12.4); NEUTROPHILS ABSOLUTE AUTO 24.75 K/mm3 (1.96-9.15); NEUTROPHILS PERCENT AUTO 90 % (41-73); NRBC ABSOLUTE 0.03 K/mm3 (0.00-0.02); NRBC Auto 0.1 /100 WBC (0.0-0.2); Platelet Count 278 K/mm3 (150-400); RDW Coefficient Variation 14.7 % (11.7-14.2); RDW Standard Deviation 44.6 fL (35.1-46.3); Red Blood Cell Count 3.17 M/mm3 (3.80-5.20); White Blood Cell Count 27.46 K/mm3 (4.00-11.30)
[2024-03-07 13:21] LABS: Bun/Creatinine Ratio 10.4 (12.0-20.0); Calcium, Blood 7.6 mg/dL (8.5-10.1); Creatinine, Blood 0.96 mg/dL (0.40-1.00); Potassium, Blood 4.4 mmol/L (3.5-5.5)
[2024-03-07] MEDS ORDERED: CeFAZolin Sodium 1,000 MG in NS 50 ML IV SCH (14:00)
[2024-03-07 14:07] LABS: PCO2 Arterial 31.3 mmHg (35-45); PO2 Arterial 146 mmHg (80-100); pH Blood Arterial 7.34 (7.35-7.45)
[2024-03-07] MEDS ORDERED: fentaNYL citrate 1,000 MCG in NS 80 ML IV SCH (14:25)
[2024-03-07] MEDS ORDERED: Midazolam HCl 1MG / ML 2ML Vial IV SCH (14:30)
[2024-03-07] MEDS ORDERED: Midazolam HCl 1MG / ML 2ML Vial IV PRN (14:40)
[2024-03-07] MEDS ORDERED: Carboprost Tromethamine 250 MCG/ML 1ML Amp IM ONE (16:05)
--- NOTE | 2024-03-07 16:31 | NUR ---
APGARS FOR BABY B PER DR SANTOS DOCUMENTATION IN EMR
--- NOTE | 2024-03-07 17:08 | NUR ---
CONSULT - PT INTUBATED BUT SHAKES HEAD YES WHEN ASKED IF SHE WANTS TO PUMP BREAST MILK. INFORMATION GIVEN TO PT'S MOTHER AND ONSHIFT RN ABOUT DURATION AND FREQUENCY OF PUMPING AND HOW TO CLEAN PUMP PARTS. PT'S MOM VERBALIZES UNDERSTANDING, DENIES ANY FURTHER QUESTIONS.
--- NOTE | 2024-03-07 18:37 | NUR ---
SHIFT SUMMARY.... PT WENT TO WRAPPER DIPPER APROX 1030 AND RETURNED AT APROX 1130. PT'S VS STABLE, ART LINE SHOWING MAPS>65, LEVOPHED DRIP WAS AT 2MCG/MIN AND THIS WAS STOPPED WHILE THE PT WAS IN THE WRAPPER DIPPER. FUNDAL MASSAGE Q4HR PER OB PROVIDER WAS DONE, PT'S VAGINAL BLEEDING HAS IMPROVED T/O THIS SHIFT. THE PT'S CANCINO IS PATENT AND DRAINING TO GRAVITY, RECTAL TMAX HAS BEEN 98.6. PT HAS NOT HAD A BM. SHE WAS GIVEN 1 UNIT OF PRBCs WHICH SHE TOLERATED WELL. THE ART LINE IN THE PT'S LEFT RADIAL IS STABLE, RIGHT RADIAL SITE FROM THE WRAPPER DIPPER IS STABLE, TR BAND WAS REMOVED AT 1730. PROPOFOL DRIP IS RUNNING AT 60MCG/KG/MIN, FENTANYL DRIP WAS STARTED PER ORDERS AND TITRATED UP TO 125MCG/HR WITH A RASS OF -1 TO +1 AT TIMES. THE PT'S MOM IRINA IS AT THE BEDSIDE. RN CAME TO THE ROOM AT 1630 PT PUMPED FOR 15MINS WITH ASSISTANCE. WILL CONTINUE TO MONITOR UNTIL REPORT IS GIVEN TO ONCOMING RN.
[2024-03-07 20:30] LABS: Hematocrit 19.8 % (33.0-51.0); Hemoglobin 6.4 g/dL (11.5-16.0); Mean Corpuscular HGB 26.2 pg (26.0-34.0); Mean Corpuscular HGB Conc 32.3 g/dL (31.5-36.5); Mean Corpuscular Volume 81 fL (80-100); Mean Platelet Volume 9.9 fL (9.1-12.4); NRBC ABSOLUTE 0.03 K/mm3 (0.00-0.02); NRBC Auto 0.1 /100 WBC (0.0-0.2); Platelet Count 223 K/mm3 (150-400); RDW Standard Deviation 44.6 fL (35.1-46.3); Red Blood Cell Count 2.44 M/mm3 (3.80-5.20); White Blood Cell Count 25.29 K/mm3 (4.00-11.30)
[2024-03-07 20:55] LABS: Magnesium, Blood 1.8 mg/dL (1.6-2.4)
--- NOTE | 2024-03-07 20:57 | NUR ---
ASSUMPTION OF CARE: RECEIVED REPORT FROM TWIN AT 1900. PT INTUBATED AND SEDATED ON PROPOFOL AT 60 MCG/KG/MIN AND FENTANYL AT 125 MCG/HR, INFUSING THROUGH RIJ CENTRAL LINE. PT AWAKENS TO VERBAL STIMULI AND FOLLOWS COMMANDS. PT GRIMACES WITH PAINFUL STIMULI AND NODS HEAD YES WHEN ASKED ABOUT PAIN. ATTEMPTED TO TURN SEDATION DOWN AND PT BECAME VERY AGGITATED AND RESTLESS. SEDATION TURNED BACK UP FOR COMFORT. VENT SETTINGS AC/VC 22/450/7.0/30%. SPO2 HIGH 90'S. LUNGS COARSE T/O. TWITCHELL OPERATOR IN PLACE, SR WITH HR 80'S-90'S. MAP >65, READING FROM LEFT WRIST ARTERIAL LINE. ARTLINE DRESSING C/D/I, ARMBOARD IN PLACE. RIGHT RADIAL TR BAND SITE SHOWS NO SIGNS OF BLEEDING OR HEMATOMA. DRESSING C/D/I, ARMBOARD IN PLACE. ABDOMEN FIRM AND TENDER WITH FUNDAL MASSAGES. SITE HAS DRESSING IN PLACE WITH MODERATE AMOUNT OF DRAINAGE, MARKED WITH MARKER. ABDOMINAL BINDER IN PLACE. PT HAS MINIMAL AMOUNT OF VAGINAL BLEEDING NOTED ON PAD. CANCINO IN PLACE, DRAINING TO GRAVITY. NO BM YET. PT MOM AT THE BEDSIDE, UPDATED TO PLAN OF CARE.
[2024-03-07 21:01] LABS: Bun/Creatinine Ratio 10.2 (12.0-20.0); Calcium, Blood 7.3 mg/dL (8.5-10.1); Creatinine, Blood 1.08 mg/dL (0.40-1.00); Phosphorus, Blood 4.4 mg/dL (2.5-4.9); Potassium, Blood 4.4 mmol/L (3.5-5.5)
[2024-03-07] MEDS ORDERED: NS 250 ML IV PRN (21:20)
[2024-03-07] MEDS ORDERED: Magnesium Sulf 2 GM/Water 50ML 50 ML IV ONE (21:20)
[2024-03-07 21:23] LABS: BAND PERCENT MAN 2 % (0-8); BASOPHILS PERCENT MAN 0 % (0-2); EOSINOPHILS PERCENT MAN 0 % (0-6); LYMPHOCYTES ABSOLUTE MAN 0.75 K/mm3 (0.84-5.20); LYMPHOCYTES PERCENT MAN 3 % (21-46); MONOCYTES ABSOLUTE MAN 1.01 K/mm3 (0.16-1.47); MONOCYTES PERCENT MAN 4 % (4-13); NEUTROPHILS ABSOLUTE MAN 23.51 K/mm3 (1.96-9.15); SEG NEUTROPHILS PERCENT MAN 91 % (41-73); TOTAL CELLS COUNTED 100
[2024-03-07] MEDS ORDERED: Lactated Ringer's 1,000 ML IV SCH (21:25)
[2024-03-08] VITALS (14 sets, daily range): BP systolic 112–140; BP diastolic 76–103
[2024-03-08] MEDS ORDERED: Vancomycin HCL 1,000 MG in NS 250 ML IV SCH
[2024-03-08] MEDS ORDERED: CALCIUM GLUC IN NACL, ISO-OSM 50 ML IV ONE (00:45)
[2024-03-08] MEDS ORDERED: Hydrogen Peroxide 1.5 % Solution MT SCH (04:00)
[2024-03-08 04:01] LABS: BASOPHILS ABSOLUTE AUTO 0.03 K/mm3 (0.00-0.23); BASOPHILS PERCENT AUTO 0 % (0-2); EOSINOPHILS PERCENT AUTO 0 % (0-6); Hematocrit 18.5 % (33.0-51.0); Hemoglobin 6.2 g/dL (11.5-16.0); IMMATURE GRAN ABSOLUTE AUTO 0.19 K/mm3 (0.00-0.10); IMMATURE GRAN PERCENT AUTO 1 % (0-1); LYMPHOCYTES ABSOLUTE AUTO 1.96 K/mm3 (0.84-5.20); LYMPHOCYTES PERCENT AUTO 10 % (21-46); MONOCYTES ABSOLUTE AUTO 1.03 K/mm3 (0.16-1.47); MONOCYTES PERCENT AUTO 5 % (4-13); Mean Corpuscular HGB 27.2 pg (26.0-34.0); Mean Corpuscular HGB Conc 33.5 g/dL (31.5-36.5); Mean Corpuscular Volume 81 fL (80-100); Mean Platelet Volume 10.4 fL (9.1-12.4); NEUTROPHILS ABSOLUTE AUTO 16.92 K/mm3 (1.96-9.15); NEUTROPHILS PERCENT AUTO 84 % (41-73); Platelet Count 213 K/mm3 (150-400); RDW Standard Deviation 44.1 fL (35.1-46.3); Red Blood Cell Count 2.28 M/mm3 (3.80-5.20); White Blood Cell Count 20.13 K/mm3 (4.00-11.30)
[2024-03-08 04:30] LABS: Bun/Creatinine Ratio 10.7 (12.0-20.0); Calcium, Blood 7.4 mg/dL (8.5-10.1); Creatinine, Blood 1.31 mg/dL (0.40-1.00); Magnesium, Blood 2.2 mg/dL (1.6-2.4); Potassium, Blood 4.1 mmol/L (3.5-5.5)
--- NOTE | 2024-03-08 05:02 | NUR ---
UPDATE: CALL PLACED TO DR. SMITH REGARDING AM HGB AND PROLONGED QT. ORDER GIVEN FOR 2 UNITS OF PRBC'S TO BE GIVEN. ORDER GIVEN FOR EKG. DR. SMITH REQUESTED THAT THIS RN CALL THE ON-CALL OBGYN. CALL PLACED TO DR. ALEXIS REGARDING PT HGB. DR. ALEXIS HAD NO NEW ORDERS OTHER THAN TO ADMINISTER THE 2 UNITS OF PRBC'S.
--- NOTE | 2024-03-08 05:10 | NUR ---
SHIFT SUMMARY: PT CONTINUES TO REMAIN INTUBATED AND SEDATED. PT AWAKENS TO VERBAL STIMULI ALTHOUGH IS VERY AGGITATED AND RESTLESS. PT GIVEN MULTIPLE DOSES OF PRN VERSED. PROPOFOL AT 50 MCG/KG/MIN THIS MORNING WITH FENTANYL AT 125 MCG/HR. PT NODS HEAD YES AND NO TO QUESTIONS AND WITHDRAWS TO PAINFUL STIMULI. CENTRAL LINE TO RIJ REMAINS PATENT AND INFUSING. VENT SETTINGS UNCHANGED THIS SHIFT. SPO2 HIGH 90'S T/O THE SHIFT. LUNGS COARSE. SCOWMAN IN PLACE, SR WITH HR 70'S-90'S. MAP >65, READING FROM L RADIAL ARTLINE. ARTLINE PATENT, DRESSING INTACT WITH ARMBOARD IN PLACE. RIGHT RADIAL SITE REMAINS FREE FROM HEMATOMA OR BLEEDING, DRESSING INTACT WITH ARMBOARD IN PLACE. ABDOMEN MORE DISTENDED THIS AM, DR. ALEXIS AND DR. SMITH AWARE, ABDOMINAL BINDER IN PLACE. FUNDAL MASSAGES HAVE BEEN DONE Q4 THIS SHIFT. DRESSING TO AREA SHOWS NO NEW SIGNS OF BLEEDING. VAGINAL BLEEDING REMAINS SMALL. CANCINO IN PLACE, DRAINING SMALL AMOUNTS OF ANGELO COLORED URINE. BED LOW AND LOCKED. PT'S MOM REMAINS AT BEDSIDE T/O THE NIGHT.
--- NOTE | 2024-03-08 06:12 | NUR ---
UPDATE: PRBC INFUSING AT 125 ML/HR.
[2024-03-08] MEDS ORDERED: Cetylpyridinium Chloride 1 EA MISC MT SCH (08:00)
--- NOTE | 2024-03-08 08:19 | NUR ---
BEDSIDE SHIFT REPORT, PT WAS ON PROPOFOL AT 50MCG/KG/HR, FENTANYL @ 125MCG/HR, RECEIVING 1 UNIT PRBC'S. PT TRYING TO TALK, RESTLESS, AGITATED, VERSED GIVEN PER AUG. IN AND . WANTS TO EXTUBATE. FENTANYL TURNED OFF, PROPOFOL TITRATED DOWN BY 20'S EVERY 20 MINUTES. PT EXTUBATED JUST AFTER 0800. PT IS AWAKE AND COMMUNICATING. BREATHING EVEN AND UNLABORED, TEARFUL, PARENTS AT BEDSIDE. SATS 95%.
[2024-03-08] MEDS ORDERED: Citalopram Hydrobromide 20 MG Tab PO SCH (09:00)
--- NOTE | 2024-03-08 09:58 | NUR ---
CONNOR IS COUGHING AND DEEP BREATHING, COUGHING UP PHLEGM, SOME FROTHY AND SOME BLOOD TINGE. PT IS TAKING IN PO FLUIDS SLOWLY, TOLERATING WELL. 2ND UNIT OF PRBC'S NEARLY FINISHED, TOLERATED WELL. MOVING ALL EXTREMITIES. ART LINE SITE C/D/I, EDUCATION PROVIDED. RIGHT RADIAL SITE, C/D/I, EDUCATION PROVIDED. ABDOMEN IS SOFT, INCISION LINE C/D/I. MINIMAL VAGINAL DRAINAGE. FUNDUS MASSAGED BELOW UMBILICUS. MOM AT BEDSIDE. SPOKE WITH [facility] RAILROAD SWITCHMAN re: HER BABIES. NAMED BABIES AND HAS SEEN PICTURES.
[2024-03-08] MEDS ORDERED: Azithromycin 250 MG Tab PO SCH (10:57)
[2024-03-08] MEDS ORDERED: Metoprolol Succinate 25 MG TABCR PO SCH (11:00)
[2024-03-08] MEDS ORDERED: HYDROcodone 10-APAP 325 TAB PO PRN (11:15)
[2024-03-08] MEDS ORDERED: FentaNYL Citrate 50 MCG/ML 2 ML Injection IV PRN (11:15)
[2024-03-08] MEDS ORDERED: HYDROcodone 5-APAP 325 TAB PO PRN (11:15)
[2024-03-08] MEDS ORDERED: CefTRIAXone Sodium 1,000 MG in NS 100 ML IV SCH (12:00)
[2024-03-08 13:03] LABS: Hematocrit 23.9 % (33.0-51.0); Hemoglobin 7.9 g/dL (11.5-16.0)
[2024-03-08] MEDS ORDERED: Nicotine 7 MG PATCH TOP SCH (13:18)
--- NOTE | 2024-03-08 13:47 | NUR ---
Pt. is awake and sitting up in a chair. Pt is pleasant, but still unsettled by her health condition. Facilitated a brief introduction and a review of the previous day's events. Pt. verbalized gratitude for the spiritual care support of her mom and for the visit. Will remain available to the Pt. and family.
--- NOTE | 2024-03-08 18:52 | NUR ---
CONNOR REMAINS WITH SHORTNESS OF BREATH, CURRENTLY ON ROOM AIR, MAINTAINING SATS AT >90%. CONTINUES TO COUGH, EXPECTORATING CLEAR, OFTEN PINK TINGE RETURN. HER INCISION IS C/D/I, HER CRISTOBAL PAD HAS BEEN WEIGHED AND MEASURED X2. FUNDAL MASSAGE CONTINUES EVERY 4 HOURS. PT EXTREMELY PAINFUL, HAVE BEEN UNABLE TO GET ON TOP OF THE PAIN THUS FAR. SCD'S REMAIN IN PLACE, TAKING IN PO FLUIDS AND EATING FAIRLY WELL. ANTICIPATE RETURN TO FAMILY PLACE TOMORROW IF ALL CONT TO GO WELL. REPORT GIVEN TO YU LYNNE
--- NOTE | 2024-03-08 19:15 | NUR ---
ASSESSMENT/ASSUMED CARE PT SITTING UP IN A CHAIR VISITING WITH MOTHER. A&O. ANSWERING QUESTIONS APPROP. REPORTS PAIN 6/10 TO INCISIONS SITE. LUNGS CLEAR WITH CRACKLES AND DECREASED IN THE BASES. PRODUCITIVE COUGH, SELF SUCTIONS. THIN FROTHY PINK. HEART RATE REGULAR. BP STABLE. EDEMA TO EXT NOTED. BT+HYPOACTIVE. FUNDUS 2 FINGERS ABOVE UMBILICAL. MESSAGED DOWN TO BELOW UMBILICAL. ABD DRSG INTACT WITH OLD DRAINAGE, NO INCREASE FROM MARKED LINE. CANCINO CATH PATENT DRAINING YELLOW URINE. CENTRAL LINE TO RIGHT IJ WITH NS AT TKO. PT EATING DINNER. ENCOURAGED TO PUMP BREASTS TO HELP WITH FUNDUS.
[2024-03-09] VITALS (25 sets, daily range): BP systolic 126–157; BP diastolic 74–105
[2024-03-09 04:04] LABS: BASOPHILS ABSOLUTE AUTO 0.05 K/mm3 (0.00-0.23); BASOPHILS PERCENT AUTO 0 % (0-2); EOSINOPHILS ABSOLUTE AUTO 0.03 K/mm3 (0.00-0.68); EOSINOPHILS PERCENT AUTO 0 % (0-6); Hematocrit 23.8 % (33.0-51.0); Hemoglobin 7.8 g/dL (11.5-16.0); IMMATURE GRAN ABSOLUTE AUTO 0.24 K/mm3 (0.00-0.10); IMMATURE GRAN PERCENT AUTO 1 % (0-1); LYMPHOCYTES ABSOLUTE AUTO 1.96 K/mm3 (0.84-5.20); LYMPHOCYTES PERCENT AUTO 11 % (21-46); MONOCYTES ABSOLUTE AUTO 1.14 K/mm3 (0.16-1.47); MONOCYTES PERCENT AUTO 6 % (4-13); Mean Corpuscular HGB 27.1 pg (26.0-34.0); Mean Corpuscular HGB Conc 32.8 g/dL (31.5-36.5); Mean Corpuscular Volume 83 fL (80-100); Mean Platelet Volume 10.1 fL (9.1-12.4); NEUTROPHILS ABSOLUTE AUTO 15.17 K/mm3 (1.96-9.15); NEUTROPHILS PERCENT AUTO 82 % (41-73); NRBC ABSOLUTE 0.03 K/mm3 (0.00-0.02); NRBC Auto 0.2 /100 WBC (0.0-0.2); Platelet Count 243 K/mm3 (150-400); RDW Coefficient Variation 15.2 % (11.7-14.2); RDW Standard Deviation 45.7 fL (35.1-46.3); Red Blood Cell Count 2.88 M/mm3 (3.80-5.20); White Blood Cell Count 18.59 K/mm3 (4.00-11.30)
[2024-03-09 04:23] LABS: Bun/Creatinine Ratio 16.4 (12.0-20.0); Calcium, Blood 7.5 mg/dL (8.5-10.1); Creatinine, Blood 0.8 mg/dL (0.40-1.00); Phosphorus, Blood 2.9 mg/dL (2.5-4.9); Potassium, Blood 4.1 mmol/L (3.5-5.5)
--- NOTE | 2024-03-09 05:47 | NUR ---
SHIFT SUMMARY PT RESTING QUIETLY. MED WITH NORCO AND FENTANYL DURING THE NIGHT FOR INCISIONAL PAIN. FUNDAL MESSAGE DONE Q4HRS WITH MINIMAL AMT OF VAGINAL DISCHARGE. PT BACK TO BED WITH TWO ASSIST. LUNGS CLEAR ON ROOMAIR. RESP EVEN AND NONLABORED. PRODUCTIVE COUGH WITH PINK/YELLOW SPUTUM. PT DOING SELF SUCTION. HEART RATE REGULAR. BP STABLE. CANCINO CATH DRAINING YELLOW URINE. MOTHER ASSISTING WITH BREAST PUMP. CENTRAL LINE TO RIGHT IJ WITH NS AT 10 ML/HR. RIGHT RADIAL SITE CLEAR, ARM BOARD ON. REPORT TO ON COMING NURSE.
--- NOTE | 2024-03-09 07:31 | NUR ---
PT AWAKENED FOR CXR, PT LESS EDEMATOUS THIS AM. ABDOMEN REMAINS TENDER AT INCISION SITE, SCD'S IN USE, PT ON ROOM AIR, LESS COUGHING, LUNGS CLEAR THIS AM, SATS HI 90'S ON ROOM AIR. TAKING IN ICE CHIPS, THROAT REMAINS SORE, BRACING ABDOMEN WITH MOVEMENT. PLAN TO MOVE TO [facility] THIS MORNING AFTER OB ROUNDS.
[2024-03-09] MEDS ORDERED: Losartan Potassium 25 MG Tab PO SCH (09:00)
--- NOTE | 2024-03-09 11:43 | NUR ---
REPORT CALLED TO EMILY Valdez RN. PT'S ANTIBIOTIC BEING GIVEN. REQUESTING A DOSE OF FENTANYL BEFORE TRANSFER.
--- NOTE | 2024-03-09 12:25 | NUR ---
REPT CALLED FROM CAITLIN CROSS RN IN ICU FOR PT TRANSFER TO [facility]
--- NOTE | 2024-03-09 12:39 | NUR ---
FENTANYL GTT WASTE 90 ML FENTANYL GTT WASTED WITH SARAH PHARMACIST.
--- NOTE | 2024-03-09 12:55 | NUR ---
PT TRANSFERRED TO ROOM 131 VIA WHEELCHAIR, ALL BELONGINGS, MOM AND FRIEND IN ATTENDANCE. YU B[place]HAM AND CPT VICKI RECEIVED PT. PT TRANSITIONED FROM TO BED WITH SBA. CANCINO CATHETER WAS REMOVED BY YU BRADFORD PRIOR TO GETTING IN .
--- NOTE | 2024-03-09 13:15 | NUR ---
PT TO ROOM 131 RPT FROM Joe CROSS RN PT STABLE HAVING SOME PAIN CONTROL ISSUES AT THIS TIME, DR WARNER TO BE DOWN TO REVIEW PAIN MEDICATION ORDERS
[2024-03-09] MEDS ORDERED: OxyCODONE HCL 5 MG TAB PO PRN ×2 (13:25→13:30)
[2024-03-09] MEDS ORDERED: Acetaminophen 500 MG Tab PO PRN (13:25)
[2024-03-09] MEDS ORDERED: DEXTROMETHORPHAN/BENZOCAINE 1 EACH LOZENGE MT PRN (14:50)
--- NOTE | 2024-03-09 17:46 | NUR ---
Assisted pt with bilateral pumping
--- NOTE | 2024-03-09 18:00 | NUR ---
pt up to bathroom, showered, voided while in shower, assisted with washing hair, pt back to bed tolerated ambulating well with 2 person assist
--- NOTE | 2024-03-09 18:05 | NUR ---
PT PUMPED X 15 MIN HAD A FEW DROPS OF COLOSTRUM PT READY TO SHOWER
--- NOTE | 2024-03-09 19:14 | NUR ---
rept to PM shift
[2024-03-09] MEDS ORDERED: Acetaminophen 500 MG Tab PO SCH (19:25)
--- NOTE | 2024-03-09 19:43 | NUR ---
p/c LEFT VOICE MESSAGE FOR CPS TO CONTACT [facility] REGARDING PT BEING TRANSFERRED DOWN TO [facility] FROM ICU SERVICE COUNTER CASHIER MERLYN LANDRY
--- NOTE | 2024-03-09 23:05 | NUR ---
REPORT TO TANNER NICHOLAS.
--- NOTE | 2024-03-09 23:30 | NUR ---
ASSUMED CARE OF PT. REPORT RECEIVED FROM YU MENESES
[2024-03-10] VITALS (19 sets, daily range): BP systolic 129–157; BP diastolic 73–111
[2024-03-10] MEDS ORDERED: NIFEdipine 30 MG TabCR PO SCH (00:45)
--- NOTE | 2024-03-10 01:03 | NUR ---
DR WARNER IS UPDATED BY PHONE AT 0025 WITH BP, SOB, AND PT'S INCREASED WOB WITH ACTIVITY. ORDERS RECEIVED FOR NIFEDIPINE , MIRALAX DAILY AND O2 BY MS FOR SPO2 <92%. WILL ALSO ORDER AM CXR.
--- NOTE | 2024-03-10 03:25 | NUR ---
PT STATES SHE HAS BEEN BREATNING A LITTLE EASIER WITH O2 ON AND HAS BEEN ABLE TO SLEEP FOR THE LAST 1.5 HOURS. SHE AWAKENED TO EAT SOMETHING AND NOW WISHES TO TRY TO GO BACK TO SLEEP. PAIN 5/10 REPORTED TOLERABLE.
--- NOTE | 2024-03-10 05:00 | NUR ---
PT AWAKENS EASILY TO VOICE. SHE REPORTS BREATHING EFFORT AND PAIN ARE BOTH SLIGHTLY IMPROVED AND SHE HAS GOTTEN SOME SLEEP. V IS REPLACED DUE TO LEAKING AND AM LABS DRAWN WITH IV START. PT IS ASSISTED TO BATHROOM TO VOID AND CRISTOBAL CARE/PAD CHANGE DONE. PT IS THEN ASSISTED TO CHAIR TO USE BREAST PUMP.
--- NOTE | 2024-03-10 05:30 | NUR ---
PT PUMPS FOR 15 MIN
[2024-03-10 05:38] LABS: BASOPHILS ABSOLUTE AUTO 0.09 K/mm3 (0.00-0.23); BASOPHILS PERCENT AUTO 1 % (0-2); EOSINOPHILS ABSOLUTE AUTO 0.08 K/mm3 (0.00-0.68); EOSINOPHILS PERCENT AUTO 0 % (0-6); Hematocrit 26.4 % (33.0-51.0); Hemoglobin 8.4 g/dL (11.5-16.0); IMMATURE GRAN PERCENT AUTO 1 % (0-1); LYMPHOCYTES ABSOLUTE AUTO 3.52 K/mm3 (0.84-5.20); LYMPHOCYTES PERCENT AUTO 19 % (21-46); MONOCYTES PERCENT AUTO 6 % (4-13); Mean Corpuscular HGB 26.7 pg (26.0-34.0); Mean Corpuscular HGB Conc 31.8 g/dL (31.5-36.5); Mean Corpuscular Volume 84 fL (80-100); Mean Platelet Volume 10.4 fL (9.1-12.4); NEUTROPHILS ABSOLUTE AUTO 13.71 K/mm3 (1.96-9.15); NEUTROPHILS PERCENT AUTO 73 % (41-73); NRBC ABSOLUTE 0.05 K/mm3 (0.00-0.02); NRBC Auto 0.3 /100 WBC (0.0-0.2); Platelet Count 293 K/mm3 (150-400); RDW Coefficient Variation 15.4 % (11.7-14.2); RDW Standard Deviation 46.6 fL (35.1-46.3); Red Blood Cell Count 3.15 M/mm3 (3.80-5.20)
[2024-03-10 06:19] LABS: Albumin, Blood 1.7 g/dL (3.4-5.0); Albumin/Globulin Ratio 0.5 (0.8-1.8); Bilirubin, Total 0.3 mg/dL (0.1-1.0); Bun/Creatinine Ratio 23.2 (12.0-20.0); Calcium, Blood 7.7 mg/dL (8.5-10.1); Creatinine, Blood 0.78 mg/dL (0.40-1.00); Globulin, Blood 3.3 g/dL (2.2-4.0); Phosphorus, Blood 3.6 mg/dL (2.5-4.9); Potassium, Blood 4.1 mmol/L (3.5-5.5)
[2024-03-10] MEDS ORDERED: Polyethylene Glycol 3350 17 gm PO SCH (09:00)
--- NOTE | 2024-03-10 10:30 | NUR ---
ASSUMED CARE OF PT FROM Wenceslao BURRIS RN
[2024-03-10] MEDS ORDERED: Spironolactone 25 MG Tab PO SCH (17:00)
[2024-03-10] MEDS ORDERED: ACET500 PO (17:49)
[2024-03-10] MEDS ORDERED: AZIT250 PO (17:50)
[2024-03-10] MEDS ORDERED: LOSA25 PO (17:50)
[2024-03-10] MEDS ORDERED: METOPROLOL SUCC25 MG PO (17:52)
[2024-03-10] MEDS ORDERED: MIRALAX17 GM PO (17:53)
[2024-03-10] MEDS ORDERED: OXAYDO5 M1 PO (17:53)
[2024-03-10] MEDS ORDERED: ALDACTONE25 MG PO (17:53)
[2024-03-11] MEDS ORDERED: Spironolactone 25 MG Tab PO SCH (09:00)
--- NOTE | 2024-03-13 14:32 | NUR ---
PPFU - PT SCHEDULED W/ NB TWINS FOR F/U HERE AT [facility]. PT NOT ABLE TO COME DUE TO NB TWINS STILL ADMITTED TO [facility] PT STATES SHE WILL CALL FOR F/U WHEN TWINS ARE DISCHARGED FROM [facility]. PT STATES SHE IS PUMPING ON SCHEDULED, LAST PUMP WAS ABLE TO REMOVED 2 OUNCES. PT STATES SHE HAS NOT HAD A BM SINCE C/S BUT IS PASSING GAS. PT STATES BLEEDING IS DECREASING AND BROWN IN COLOR. PT STATES SHE HAS HAD A HEADACHE THAT IS MILD AND COMES AND GOES, DENIES BLURRED VISION, DIZZINESS, NUMBNESS OR TINGLING IN EXTREMITIES. PT STATES HER LEGS AND FEET ARE SWOLLEN AND IS USING COMPRESSION SOCKS, DENIES TENDER, RED, HOT SPOTS BEHIND KNEES AND CLAVES. PT HAD MD F/U SCHEDULED. STATES SHE IS TAKING IBUPROFEN, TYLENOL, OXYCODONE, AND A PNV. DENIES ANY FURTHER QUESTIONS OR CONCERNS.
== END 2024-03-10 20:04 | disposition home or self-care (01) | DRG 786 ==
LOC: OBS 06:13 → BC 06:16 → ICUE 07:25 → BC 03-09 12:50
PROVIDERS: Emergency Medicine; Obstetrics & Gynecology; Student in an Organized Health Care Education/Training Program; ADMIT Obstetrics & Gynecology
PROC: 05HM33Z Insertion of Infusion Device into Right Internal Jugular Vein, Percutaneous Approach (ICD-10-PCS; 2024-03-07)
PROC: 03HY32Z Insertion of Monitoring Device into Upper Artery, Percutaneous Approach (ICD-10-PCS; 2024-03-07)
PROC: 4A133B1 Monitoring of Arterial Pressure, Peripheral, Percutaneous Approach (ICD-10-PCS; 2024-03-07)
PROC: 4A133J1 Monitoring of Arterial Pulse, Peripheral, Percutaneous Approach (ICD-10-PCS; 2024-03-07)
PROC: 3E033XZ Introduction of Vasopressor into Peripheral Vein, Percutaneous Approach (ICD-10-PCS; 2024-03-07)
PROC: 5A09357 Assistance with Respiratory Ventilation, Less than 24 Consecutive Hours, Continuous Positive Airway Pressure (ICD-10-PCS; 2024-03-07)
PROC: 30233N1 Transfusion of Nonautologous Red Blood Cells into Peripheral Vein, Percutaneous Approach (ICD-10-PCS; 2024-03-07)
PROC: 0DH67UZ Insertion of Feeding Device into Stomach, Via Natural or Artificial Opening (ICD-10-PCS; 2024-03-07)
PROC: 4A033R1 Measurement of Arterial Saturation, Peripheral, Percutaneous Approach (ICD-10-PCS; 2024-03-07)
PROC: 0W9D3ZZ Drainage of Pericardial Cavity, Percutaneous Approach (ICD-10-PCS; 2024-03-07)
PROC: B2111ZZ Fluoroscopy of Multiple Coronary Arteries using Low Osmolar Contrast (ICD-10-PCS; 2024-03-07)
PROC: 5A1945Z Respiratory Ventilation, 24-96 Consecutive Hours (ICD-10-PCS; 2024-03-07)
PROC: 0BH17EZ Insertion of Endotracheal Airway into Trachea, Via Natural or Artificial Opening (ICD-10-PCS; 2024-03-07)
PROC: 10D00Z1 Extraction of Products of Conception, Low, Open Approach (ICD-10-PCS; principal; 2024-03-07 09:15)
DX: O30.043 Twin pregnancy, dichorionic/diamniotic, third trimester (principal); I50.21 Acute systolic (congestive) heart failure; J96.01 Acute respiratory failure with hypoxia; O75.1 Shock during or following labor and delivery; O99.42 Diseases of the circulatory system complicating childbirth; J18.9 Pneumonia, unspecified organism; O90.3 Peripartum cardiomyopathy; I31.39 Other pericardial effusion (noninflammatory); O99.324 Drug use complicating childbirth; N17.9 Acute kidney failure, unspecified; O26.833 Pregnancy related renal disease, third trimester; Z3A.36 36 weeks gestation of pregnancy; Z37.2 Twins, both liveborn; O14.14 Severe pre-eclampsia complicating childbirth; O99.52 Diseases of the respiratory system complicating childbirth; O90.81 Anemia of the puerperium; O99.344 Other mental disorders complicating childbirth; F15.90 Other stimulant use, unspecified, uncomplicated; F39 Unspecified mood [affective] disorder; O40.3XX0 Polyhydramnios, third trimester, not applicable or unspecified; O32.1XX0 Maternal care for breech presentation, not applicable or unspecified; Z88.0 Allergy status to penicillin; Z88.5 Allergy status to narcotic agent
CPT/HCPCS: 31500; 36415; 36430; 36556; 36620; 71045; 71260; 74018; 76937; 80048; 80053; 81001; 82330; 82803; 82947; 83735; 83880; 84100; 84443; 84484; 85014; 85018; 85025; 85610; 85730; 86850; 86900; 86901; 86923; 93005; 93010; 93306; 93308; 93321; 93454; 94002; 94003; 94660; 96374-59; 96375-59; 99152; 99291-25; A9270; C1751; C1769; C1887; C1894; J0456; J0612; J0690; J0696; J1100; J1644; J1720; J1940; J2250; J2405; J2590; J2704; J3010; J3370; J3475; J7030; J7040; J7050; J7120; P9016; Q9967

== ENCOUNTER 2024-05-10 14:32 | Observation (INO) | payer OTHER ==
[~2024-05-10] VITALS: Ht 157.5 cm; Wt 63.5 kg
[~2024-05-10 14:32] MED LIST changes: +ACET500 PO; +ALDACTONE25 MG PO; -Furosemide 10 MG/ML 4ML Vial ONE; +LOSA25 PO; +METOPROLOL SUCC25 MG PO; +MIRALAX17 GM PO; -Nitroglycerin/D5W 250 ML IV ONE; -Nitroglycerin/D5W 250 ML IV PRN; +OXAYDO5 M1 PO; -Ondansetron HCl 2 MG / ML 2ML Vial IV ONE; -Ondansetron HCl 2 MG / ML 2ML Vial ONE
[2024-05-10 15:22] LABS: BASOPHILS ABSOLUTE AUTO 0.06 K/mm3 (0.00-0.23); BASOPHILS PERCENT AUTO 1 % (0-2); EOSINOPHILS ABSOLUTE AUTO 0.13 K/mm3 (0.00-0.68); EOSINOPHILS PERCENT AUTO 1 % (0-6); Hematocrit 43.2 % (33.0-51.0); Hemoglobin 14.3 g/dL (11.5-16.0); IMMATURE GRAN ABSOLUTE AUTO 0.03 K/mm3 (0.00-0.10); IMMATURE GRAN PERCENT AUTO 0 % (0-1); LYMPHOCYTES ABSOLUTE AUTO 2.54 K/mm3 (0.84-5.20); LYMPHOCYTES PERCENT AUTO 24 % (21-46); MONOCYTES ABSOLUTE AUTO 0.45 K/mm3 (0.16-1.47); MONOCYTES PERCENT AUTO 4 % (4-13); Mean Corpuscular HGB 29.5 pg (26.0-34.0); Mean Corpuscular HGB Conc 33.1 g/dL (31.5-36.5); Mean Corpuscular Volume 89 fL (80-100); Mean Platelet Volume 9.2 fL (9.1-12.4); NEUTROPHILS ABSOLUTE AUTO 7.48 K/mm3 (1.96-9.15); NEUTROPHILS PERCENT AUTO 70 % (41-73); Platelet Count 465 K/mm3 (150-400); RDW Coefficient Variation 15.5 % (11.7-14.2); RDW Standard Deviation 50.9 fL (35.1-46.3); Red Blood Cell Count 4.85 M/mm3 (3.80-5.20); White Blood Cell Count 10.69 K/mm3 (4.00-11.30)
[2024-05-10 15:36] LABS: Ethanol (Alcohol), Blood, Med <3 mg/dL; Salicylate <1.7 mg/dL (2.8-20.0)
[2024-05-10 15:37] LABS: Acetaminophen, Random <2.0 ug/mL (10.0-30.0); Alanine Aminotransfer (ALT/SGP 39 U/L (12-78); Albumin/Globulin Ratio 1.2 (0.8-1.8); Alk Phos 76 U/L (50-136); Anion Gap 9 mmol/L (3-11); Aspartate Aminotrans (AST/SGOT 19 U/L (12-37); Bilirubin, Total 0.6 mg/dL (0.1-1.0); Blood Urea Nitrogen 10 mg/dL (8-24); Bun/Creatinine Ratio 13.8 (12.0-20.0); CO2, Blood 24 mmol/L (21-32); Calcium, Blood 9.3 mg/dL (8.5-10.1); Chloride, Blood 111 mmol/L (98-108); Creatinine, Blood 0.73 mg/dL (0.40-1.00); Globulin, Blood 3.2 g/dL (2.2-4.0); Glomerular Filtration Rate 116 (60-); Glucose, Blood 107 mg/dL (70-99); Potassium, Blood 4.3 mmol/L (3.5-5.5); Sodium, Blood 140 mmol/L (136-145); Total Protein, Blood 7.2 g/dL (6.4-8.2)
[2024-05-10 17:45] LABS: Source, Urine Clean Catch
[2024-05-10 18:00] LABS: Bilirubin, Urine Neg (Neg); Blood, Urine Neg (Neg); Glucose Qualitative, Urine Neg (Neg); Ketones, Urine Neg (Neg); Leukocyte Esterase, Urine Neg (Neg); Nitrite, Urine Neg (Neg); Protein, Urine 1+ (Neg); Specific Gravity, Urine 1.005 (1.003-1.022); Urobilinogen, Urine NORM (Normal)
[2024-05-10 18:06] LABS: Color, Urine Pale Yellow (P-Yellow)
[2024-05-10 18:07] LABS: Appearance, Urine Hazy (Clear)
[2024-05-10 18:08] LABS: Bacteria Many /hpf; Red Blood Cells, Urine 0-2 /hpf (0-2); Squamous Epithelial Cells Many /hpf (Few); White Blood Cells, Urine 0-2 /hpf (0-5)
[2024-05-10 18:11] LABS: U Amphetamine Screen DETECTED; U Barbituate Screen Not Detected; U Benzodiazapine Screen Not Detected; U Buprenorphine Screen Not Detected; U Cannabinoids Screen Not Detected; U Cocaine Screen Not Detected; U Methadone Screen Not Detected; U Methamphetamine Screen Not Detected; U Opiates Screen Not Detected; U Oxycodone Screen Not Detected; U Phencyclidine Screen Not Detected
[2024-05-10] MEDS ORDERED: Acetaminophen 500 MG Tab PO PRN (19:05)
[2024-05-10] MEDS ORDERED: Nicotine 21 MG PATCH TOP ONE (20:25)
[2024-05-10 20:36] LABS: Influenza A, PCR NEGATIVE (NEGATIVE); Influenza B, PCR NEGATIVE (NEGATIVE); Resp Syncytial Virus, PCR NEGATIVE (NEGATIVE); SARS-Cov-2 (COVID-19) PCR, MMC NEGATIVE (NEGATIVE)
[2024-05-11] MEDS ORDERED: Spironolactone 25 MG Tab PO SCH (09:00)
[2024-05-11] MEDS ORDERED: Losartan Potassium 25 MG Tab PO SCH (09:00)
[2024-05-11] MEDS ORDERED: Metoprolol Succinate 25 MG TABCR PO SCH (09:00)
[2024-05-11 15:29] VITALS: BP 110/73
== END 2024-05-11 17:32 | disposition other institution (70) ==
LOC: ER 14:32 → EOR 14:33 → EDBEDREQ 05-11 16:17 → EOR 05-11 17:32
PROVIDERS: Physician Assistant; ADMIT Emergency Medicine
DX: O99.345 Other mental disorders complicating the puerperium (principal); F53.0 Postpartum depression; R45.851 Suicidal ideations; F43.10 Post-traumatic stress disorder, unspecified; Z88.0 Allergy status to penicillin; Z88.5 Allergy status to narcotic agent
CPT/HCPCS: 0241U; 36415; 80053; 80320; 81001; 81025; 85025; 87086; 93005; 93010; 99285-25; A9270; G0378; G0480

== ENCOUNTER 2024-05-11 16:01 | Inpatient (IN) | payer OTHER ==
[~2024-05-11] VITALS: Ht 157.5 cm; Wt 64.0 kg
[2024-05-11] MEDS ORDERED: LORazepam 2 MG Tab PO PRN ×2 (17:45)
[2024-05-11] MEDS ORDERED: Haloperidol 5 MG Tab PO PRN ×2 (17:45→17:50)
[2024-05-11] MEDS ORDERED: Aluminum Hydroxide 320MG/5ML 473 ML PO PRN (17:45)
[2024-05-11] MEDS ORDERED: FLU VACC TS2024-25(6MOS UP)/PF 45 MCG/0.5 ML SYRINGE IM SCH (17:45)
[2024-05-11 17:46] VITALS: BP 98/77
[2024-05-11] MEDS ORDERED: Acetaminophen 325 MG TABLET PO PRN (17:50)
[2024-05-11] MEDS ORDERED: Mirtazapine 15 MG Tab PO PRN (17:50)
[2024-05-11] MEDS ORDERED: Ibuprofen 600 MG Tab PO PRN (17:50)
[2024-05-11 17:56] VITALS: BP 98/77
[2024-05-11] MEDS ORDERED: Nicotine Polacrilex 2 MG Gum PO PRN (19:55)
--- NOTE | 2024-05-12 04:24 | NUR ---
PATIENT WAS AWAKE IN THE HALLWAY AT THE BEGINNING OF THE SHIFT. SHE WAS ADMITTED BEFORE THE START OF SHIFT. SHE JOINED STAFF AND PEERS IN THE DINING ROOM FOR SNACK TIME. SHE WAS PLEASANT AND COOPERATIVE. SHE WAS COMPLIANT WITH EVENING MEDICATIONS AND ASKED PERTINENT QUESTIONS. SHE WENT TO BED SHORTLY AFTER SNACK TIME AND WAS NOTED TO BE RESTING QUIETLY WITH EYES CLOSED AND RESPIRATIONS CONFIRMED THE REMAINDER OF THE SHIFT. SHE HAD NO S/SX SUICIDAL IDEATION OR SELF HARM THIS SHIFT. CONTINUING TO MONITOR FOR SAFETY WITH Q15 MINUTE CHECKS.
[2024-05-12 08:48] VITALS: BP 110/65
[2024-05-12] MEDS ORDERED: Nicotine 21 MG PATCH TOP SCH (09:00)
--- NOTE | 2024-05-12 17:06 | NUR ---
SHIFT SUMMARY: PT ALERT, ORIENTED AND COOPERATIVE. DENIED SI, HI AND AVH. PT ATTENED ONE GROUP TODAY AND COMPLETED GROUP CHECK IN. ATE 100% OF BREAKFAST AND LUNCH. MOTHER CALLED AND SET UP VISIT FOR 05/13.
[2024-05-12 21:18] VITALS: BP 109/75
--- NOTE | 2024-05-13 05:09 | NUR ---
PATIENT WAS IN THE GROUP ROOM WATCHING TELEVISION AT THE BEGINNING OF THE SHIFT. SHE WAS PLEASANT AND COOPERATIVE WITH CARES. SHE JOINED THE UNIT IN THE DINING ROOM FOR SNACK TIME. SHE WAS COMPLIANT WITH EVENING MEDICATIONS. SHE HAD NO S/SX SUICIDAL IDEATION OR SELF HARM THIS SHIFT. CONTINUING TO MONITOR FOR SAFETY WITH Q15 MINUTE CHECKS.
[2024-05-13] MEDS ORDERED: Metoprolol Succinate 25 MG TABCR PO SCH (09:00)
[2024-05-13] MEDS ORDERED: Spironolactone 25 MG Tab PO SCH (09:00)
[2024-05-13] MEDS ORDERED: Polyethylene Glycol 3350 17 gm PO SCH (09:00)
[2024-05-13] MEDS ORDERED: Losartan Potassium 50 MG Tab PO SCH (09:00)
[2024-05-13 09:41] VITALS: BP 97/64
[2024-05-13] MEDS ORDERED: Venlafaxine HCl 75 MG CapCR PO ONE (10:25)
[2024-05-13] MEDS ORDERED: HydrOXYzine Pamoate 50 MG Cap PO PRN (13:40)
--- NOTE | 2024-05-13 17:18 | NUR ---
SHIFT SUMMARY: PT ALERT, ORIENTED AND COOPERATIVE. DENIES SI, HI AND AVH. PT WAS PERESNT ON THE DEPT WATCHING TV FROM TIME TO TIME. HAD A VISIT WITH HER MOTHER IN EVENING. MEDICATED WITH PRN HYDROXYZINE FOR ANXIETY.
--- NOTE | 2024-05-14 04:33 | NUR ---
PATIENT WAS IN BED RESTING QUIETLY AT THE BEGINNING OF THE SHIFT. SHE WAS AWAKENED FOR HER EVENING MEDICATION. SHE LATER CAME TO THE NURSING STATION TO ASK IF SHE COULD HAVE HER MEDICATION, SHE DID NOT REMEMBER TAKING IT. SHE WAS REASSURED THAT IT HAD BEEN GIVEN. SHE WENT BACK TO BED AND WAS NOTED TO BE RESTING QUIETLY WITH EYES CLOSED AND RESPIRATIONS CONFIRMED. SHE HAD NO S/SX SUICIDAL IDEATION THIS SHIFT. CONTINUING TO MONITOR FOR SAFETY WITH Q15 MINUTE CHECKS.
[2024-05-14] MEDS ORDERED: Venlafaxine HCl 75 MG CapCR PO SCH (09:00)
[2024-05-14 09:19] VITALS: BP 115/79
--- NOTE | 2024-05-14 17:33 | NUR ---
SHIFT SUMMARY: PT ALERT, ORIENTED AND COOPERATIVE. DENIES SI,HI AND AVH. COMPLIANT WITH MEDICATIONS. PT SPENT MOST OF THE DAY IN HER ROOM BUT WAS PRESENT FOR MEALS. HAD A VISIT WITH HER MOTHER IN THE EVENING.
[2024-05-14 21:49] VITALS: BP 119/79
--- NOTE | 2024-05-14 21:51 | NUR ---
PT UP AND IN DINING ROOM FOR SNACK. TOOK MEDS AND THEN IN TO TV ROOM TO WATCH TV WITH THE GROUP. STATES SHE IS MISSING HER KIDS AND WANTS TO GO HOME, BUT KNOWS IT IS BEST TO FINISH HER STAY HERE UNTIL SHE IS READY. fEELS SHE IS DOING BETTER SINCE ADMIT. LET HER KNOW TO ASK FOR HELP IF SHE FEELS SHE SHOULD NEED IT. WILL CONTINOUE TO MONITOR.
--- NOTE | 2024-05-15 04:12 | NUR ---
SHIFT SUMMARY : PT A/O X4. AT BEGINNING OF THE SHIFT PT HAD SNACK THEN MEDS. SHE SAYS THAT SHE IS MISSING HER CHILDREN AND WOULD LIKE TO GO HOME , BUT WILL GO HOME WHEN IT IS THE RIGHT TIME. DENIES SI. SOME DEPRESSION STILL PRESENT. STATES SHE HAS A SUPPORTIVE SYSTEM FOR WHEN SHE GOES HOME. PT SLEPT ALL NIGHT. WILL CONTINUE TO MONITOR.
[2024-05-15 08:59] VITALS: BP 120/78
--- NOTE | 2024-05-15 17:55 | NUR ---
SHIFT SUMMARY PT A/O X4; PLEASANT AND COOPERATIVE WITH CARE. SHE DENIES SI, HI, OR ANY HALLUCINATIONS. PT'S AFFECT IS WITHDRAWN AND SOMEWHAT FLAT, HOWEVER SHE REPORTS THAT SHE IS DOING BETTER THAN SHE WAS PREVIOUSLY. SHE DID NOT ATTEND GROUP THIS AM AND NEEDS SOME ENCOURAGEMENT TO ATTEND GROUP AND MILEU ACTIVITIES. SHE WAS MEDICATION X1 WITH HYDROXIZINE FOR ANXIETY WITH GOOD EFFECT. NO OTHER NEEDS THIS SHIFT. PT MONITORED VIA Q15 ROUNDS FOR SAFETY.
[2024-05-15 21:04] VITALS: BP 112/76
--- NOTE | 2024-05-16 04:19 | NUR ---
SHIFT SUMMARY PT DENIED ANY SI, HI OR AVH. SHE IS PLEASANT AND COOPERATIVE WITH CARE. SHE HAS A FLAT EFFECT AND SEEMS DISINTERESTED. SHE WAS IN GROUP ROOM WATCHING TV EARLY IN THE SHIFT, SHE HAD AN EVENING SNACK AND REQUESTED PRN MEDS TO HELP HER SLEEP AND ANXIETY. HYDROXYZINE AND REMERON GIVEN. PT HAS APPEARED TO BE SLEEPING DURING Q15 MINUTE CHECKS THROUGHOUT THE NIGHT.
[2024-05-16 08:11] VITALS: BP 107/72
[2024-05-16] MEDS ORDERED: Venlafaxine HCl 75 MG CapCR PO SCH (09:00)
--- NOTE | 2024-05-16 11:21 | NUR ---
LAB HAS BEEN TO BEDSIDE FOR BLOOD DRAW.
[2024-05-16 11:44] LABS: International Normalized Ratio 0.96; Prothrombin Time Results 10.3 Sec (9.7-11.5)
--- NOTE | 2024-05-16 17:05 | NUR ---
PT ALERT, ORIENTED AND COOPERATIVE WITH CARE. DENIED SI, HI AND AVH. HAS PLAN FOR DISCHARGE 05/17 AM AT 0600. STATES THAT HER MOTHER WILL COME TO GET HER TO TAKE HER TO [facility].
[2024-05-16 22:12] VITALS: BP 116/70
[2024-05-16] MEDS ORDERED: NICO21TP TOP (22:29)
[2024-05-16] MEDS ORDERED: MIRT15 (22:29)
[2024-05-16] MEDS ORDERED: VENL150ER PO (22:30)
[2024-05-16] MEDS ORDERED: MIRT15 PO (23:09)
--- NOTE | 2024-05-17 04:30 | NUR ---
SHIFT SUMMARY PT ALERT AND OREINTED, COOPERATIVE WITH CARE. SHE DENIED ANY SI, HI AND AVH. AT THE BEGINNING OF MY SHIFT SHE REPORTED SHE WAS ANXIOUS ABOUT HER TEST (ECHO) TOMORROW AND ASKED FOR AND RECEIVED HYDROXYZINE PER PRN ORDERS. NICOTINE PATCH WAS REMOVED AND PT GIVEN NICOTINE GUM PER REQUEST. PT WAS PRESENT IN GROUP ROOM, WATCHING MOVIE WITH PEERS. AT AROUND 2200, PT ASKED FOR REMERON TO ASSIST WITH SLEEP, AND THEN WENT TO BED. SHE HAS APPEARED TO BE SLEEPING THROUGHOUT THE NIGHT, EYES CLOSED, RESPIRATIONS EVEN AND UNLABORED. PLAN TO WAKE PATIENT EARLY FOR DISCHARGE. WILL CONTINUE Q15 MINUTE CHECKS PER UNIT PROTOCOL WHILE ON UNIT.
--- NOTE | 2024-05-17 06:17 | NUR ---
DISCHARGE SUMMARY PT AWAKENED AT 0545 FOR DISCHARGE. SHE DENIED ANY SI, HI OR AVH. REVIEWED DISCHARGE INSTRUCTIONS, MEDICATIONS, EDUCATION AND RETURN PRECAUTIONS. PT VERBALIZED UNDERSTANDING AND HAD NO QUESTIONS. BELONGINGS RETURNED BY MHA. PT'S MOTHER PICKED HER UP AND PT DEPARTED THE UNIT AT 0615.
[2024-05-17] MEDS ORDERED: FURO20 PO (06:38)
[2024-05-17] MEDS ORDERED: ASPI81CH PO (06:38)
== END 2024-05-17 06:15 | disposition home or self-care (01) | DRG 885 ==
LOC: BHU 16:01
PROVIDERS: Student in an Organized Health Care Education/Training Program; ADMIT Psychiatry & Neurology Psychiatry
DX: F33.2 Major depressive disorder, recurrent severe without psychotic features (principal); R45.851 Suicidal ideations; F53.0 Postpartum depression; R42 Dizziness and giddiness; R55 Syncope and collapse; I50.9 Heart failure, unspecified; F41.0 Panic disorder [episodic paroxysmal anxiety]; F15.10 Other stimulant abuse, uncomplicated; F43.10 Post-traumatic stress disorder, unspecified; F17.210 Nicotine dependence, cigarettes, uncomplicated; G47.00 Insomnia, unspecified; Z88.0 Allergy status to penicillin; Z88.5 Allergy status to narcotic agent; Z79.899 Other long term (current) drug therapy; Z87.09 Personal history of other diseases of the respiratory system; Z79.2 Long term (current) use of antibiotics; Z79.891 Long term (current) use of opiate analgesic; Z87.59 Personal history of other complications of pregnancy, childbirth and the puerperium; Z86.711 Personal history of pulmonary embolism
CPT/HCPCS: 36415; 85610; A9270

== ENCOUNTER 2024-05-17 06:27 | Day surgery (SDC) | payer OTHER ==
[2024-05-17] VITALS (9 sets, daily range): BP systolic 92–113; BP diastolic 54–78
[~2024-05-17 06:27] MED LIST changes: +MIRT15; +MIRT15 PO; +NICO21TP TOP; +VENL150ER PO; +propofoL 40 ML IV ONE
[2024-05-17] MEDS ORDERED: FURO20 PO (06:38)
[2024-05-17] MEDS ORDERED: ASPI81CH PO (06:38)
[2024-05-17] MEDS ORDERED: Albuterol 2.5 MG/3 ML VIAL ONE (06:39)
[2024-05-17] MEDS ORDERED: Benzocaine Oral Spray 0.5ML UD ONE (06:52)
[2024-05-17] MEDS ORDERED: NS 1,000 ML IV ONE (06:53)
--- NOTE | 2024-05-17 07:21 | NUR ---
ASSUMED CARE FROM ANESTHESIA. PT AWAKE AND VERBALIZING WELL.
--- NOTE | 2024-05-17 07:58 | NUR ---
PT AND MOM VERBALIZED UNDERSTANDING OF WRITTEN AND VERBAL D/C INST. IV REMOVED PT TAKEN OUT OF THE HRT CENTER VIA W/C.
== END 2024-05-17 23:04 | disposition home or self-care (01) ==
LOC: MHTC 06:27
DX: I34.0 Nonrheumatic mitral (valve) insufficiency (principal); F17.200 Nicotine dependence, unspecified, uncomplicated; I50.20 Unspecified systolic (congestive) heart failure; I11.0 Hypertensive heart disease with heart failure; Z88.5 Allergy status to narcotic agent; Z88.0 Allergy status to penicillin
CPT/HCPCS: 93312; 93325; A9270; J2704; J7030

== ENCOUNTER 2025-01-25 09:45 | Day surgery (SDC) | payer OTHER ==
[2025-01-25] VITALS (12 sets, daily range): BP systolic 90–131; BP diastolic 46–90
[~2025-01-25] VITALS: Ht 157.5 cm; Wt 85.0 kg
[~2025-01-25 09:45] MED LIST changes: +ASPI81CH PO; +Aspir 8181 MG PO; +BENADRYL25 M1 PO; +Bupivacaine 0.5% Inj 50 ML Vial ONE; +Buspirone HCl15 MG PO; +CeFAZolin Sodium 2,000 MG in NS 100 ML IV SCH; +Dexamethasone Sod Phos 10 MG/ML 1ML VIAL ONE; +FERROUS GLUCON324 M2 PO; +FURO20 PO; +FentaNYL Citrate 50 MCG/ML 5 ML Injection ONE; +HYDHCL25 PO; +IBUP800 PO; +Ketorolac Tromethamine 30mg Vial ONE; +LITH300ER PO; +MELA3 PO; +NICOTINE GUM2 M1 PO; +OLAN10A MM; +ONDA4 PO; +Ondansetron HCl 2 MG / ML 2ML Vial ONE; +PRAZ1 PO; +PRED20 PO; +PROP10 PO; +Rocuronium Bromide 10 MG/ML 5ML Injection IV ONE; +SERT100 PO; +TRAZ100 PO; +VENL75ER PO; -propofoL 40 ML IV ONE
[2025-01-25] MEDS ORDERED: Bupivacaine 0.5% Inj 50 ML Vial ONE (09:53)
[2025-01-25] MEDS ORDERED: Budeprion Xl300 MG PO (09:54)
[2025-01-25] MEDS ORDERED: Buspirone HCl15 MG PO (09:54)
[2025-01-25] MEDS ORDERED: OLAN10 PO (09:54)
--- NOTE | 2025-01-25 10:17 | NUR ---
Ambulatory in Day Surgery. History, Chart, Medications and Allergies reviewed before start of procedure. Lungs clear T/O to Auscultation. Patient confirms NPO status and agrees with scheduled surgery. Pre-Op teaching done. Pt verbalizes understanding. Patient States Post-Procedure ride home has been arranged. PT BELONGINGS PLACED UNDERNEATH [employer] FOR SAFEKEEPING. PT HAS JEWELRY ON HER UPPER LIP, LOWER BACK AND RING FINGER WHICH CANNOT BE REMOVED. JEWELRY TAPED, WAIVER SIGNED, OR TEAM NOTIFIED.
--- NOTE | 2025-01-25 10:24 | NUR ---
PT ARRIVED IN DAY SURGERY AT 0952. PER PT SHE WAS TOLD TO BE AT THE HOSPITAL AT 0930 FOR A 1100 START TIME.
[2025-01-25] MEDS ORDERED: NS 1,000 ML IV ONE (10:30)
[2025-01-25] MEDS ORDERED: FentaNYL Citrate 50 MCG/ML 2 ML Injection ONE (11:49)
[2025-01-25] MEDS ORDERED: Ondansetron HCl 2 MG / ML 2ML Vial ONE (11:53)
[2025-01-25] MEDS ORDERED: FentaNYL Citrate 50 MCG/ML 2 ML Injection IV PRN ×2 (11:55→12:00)
[2025-01-25] MEDS ORDERED: Albuterol 2.5 MG/3 ML VIAL INH PRN (11:55)
[2025-01-25] MEDS ORDERED: HYDROmorphone HCl/Pf 1MG SYR IV PRN ×2 (12:00)
[2025-01-25] MEDS ORDERED: Metoclopramide HCl 5MG / ML 2ML Vial IV PRN (12:00)
[2025-01-25] MEDS ORDERED: Labetalol HCL 5 MG/ML 4ML Injection (Single Dose) IV PRN (12:00)
[2025-01-25] MEDS ORDERED: Ondansetron HCl 2 MG / ML 2ML Vial IV PRN (12:00)
[2025-01-25] MEDS ORDERED: OxyCODONE 5 mg/Acetamin 325 mg TABLET PO PRN (12:05)
[2025-01-25] MEDS ORDERED: HYDROmorphone HCl/Pf 1MG SYR ONE (12:09)
--- NOTE | 2025-01-25 12:34 | NUR ---
PATIENT ALERT AND ASKING FOR COFFEE AND PAIN MEDICATION. C/O 7/10 SHARP AND CRAMPING PAIN TO PERIUMBILICUS AND MILD NAUSEA THAT SHE STATES HAS IMPROVED SINCE ANTIEMETIC. ENCOURAGED PATIENT TO DRINK FLUIDS AND OFFERED CRACKERS SO SHE MAY TAKE ORAL ANTIEMETIC. SCANT PINK DRAINAGE NOTED TO CRISTOBAL-PAD.
--- NOTE | 2025-01-25 12:43 | NUR ---
TOLERATING CRACKERS AND SIPS OF WATER. NOW DENIES NAUSEA.
--- NOTE | 2025-01-25 13:52 | NUR ---
PATIENT UP TO DRESS WITH STEADY GAIT. REPORTS FEELING READY TO DISCHARGE HOME. ACCOMPANIED BY MOM IN STEP, MOM TO DRIVE HOME. Discharge instructions reviewed with patient. Patient verbalizes understanding. Copy given to patient to take home.
== END 2025-01-25 13:53 | disposition home or self-care (01) ==
LOC: ORSCMMR 09:45 → ORD 10:00 → ORSCMMR 10:00 → ORD 11:45 → ORSCMMR 13:53
PROVIDERS: Obstetrics & Gynecology
PROC: 0UT74ZZ Resection of Bilateral Fallopian Tubes, Percutaneous Endoscopic Approach (ICD-10-PCS; principal; 2025-01-25 10:00)
DX: Z30.2 Encounter for sterilization (principal); Q50.5 Embryonic cyst of broad ligament; I10 Essential (primary) hypertension; I50.9 Heart failure, unspecified
CPT/HCPCS: 88302; A9270; J0690; J1100; J1171; J1885; J2405; J2704; J3010; J7120